=== PATIENT | female | born 1930 | race Caucasian/White ===

== ENCOUNTER 2017-08-06 16:49 | Inpatient (IN) | payer BC ==
[~2017-08-06] VITALS: Ht 167.6 cm; Wt 120.2 kg
--- NOTE | 2017-08-06 16:50 | NUR ---
[id number] FROM HOME: GENERALIZED BODY WEAKNESS, UNABLE TO AMBULATE, NAD NOTED, VSS, RESP EVEN AND UNLABORED, PT WAS PUT ON MONITOR, WAITING FOR MD HERNANDEZ.
[2017-08-06 18:24] LABS: BASOPHILS # (AUTO) 0.1 /CMM (0.0-0.2); BASOPHILS % (AUTO) 1.4 % (0.0-2.0); EOSINOPHILS # (AUTO) 0.1 /CMM (0.0-0.7); EOSINOPHILS % (AUTO) 1.6 % (0.0-6.0); HEMATOCRIT 36 % (33-45); HEMOGLOBIN 12.6 g/dL (11.5-14.8); LYMPHOCYTES # (AUTO) 0.7 /CMM (0.8-4.8); LYMPHOCYTES % (AUTO) 15.1 % (20.0-44.0); MEAN CORPUSCULAR HEMOGLOBIN 32 PG (26.0-33.0); MEAN CORPUSCULAR HGB CONC 35 g/dl (31.0-36.0); MEAN CORPUSCULAR VOLUME 92 fL (82-100); MONOCYTES # (AUTO) 0.6 /CMM (0.1-1.30); MONOCYTES % (AUTO) 12.1 % (2.0-12.0); NEUTROPHILS # (AUTO) 3.4 /CMM (1.8-8.9); NEUTROPHILS % (AUTO) 69.8 % (43.0-81.0); PLATELET COUNT (AUTO) 114 /CMM (150-450); RDW COEFFICIENT OF VARIATION 13.4 (11.5-15.0); RED BLOOD CELL COUNT(AUTO) 3.92 MIL/uL (4.0-5.2); WHITE BLOOD COUNT (AUTO) 4.9 K/uL (4.3-11.0)
[2017-08-06] MEDS ORDERED: IV NS 0.9% 500 ML BAG IV ONE (18:30)
[2017-08-06 18:36] LABS: CALCIUM, SERUM 8.6 mg/dL (8.5-10.1); CARBON DIOXIDE 21 mmol/L (21-32); CHLORIDE 109 mmol/L (98-107); CREATININE 1.3 mg/dL (0.6-1.3); GLUCOSE 93 mg/dL (74-106); POTASSIUM 4.1 mmol/L (3.5-5.1); SODIUM SERUM 140 mmol/L (136-145); UREA NITROGEN, BLOOD 19 mg/dL (7-18)
[2017-08-06 18:39] LABS: INR 0.92 (0.85-1.15)
[2017-08-06 18:42] LABS: ALANINE AMINOTRANSFERASE 18 U/L (12-78); ALBUMIN 2.9 g/dL (3.4-5.0); ALKALINE PHOSPHATASE 54 U/L (46-116); ASPARTATE AMINOTRANSFERASE 25 U/L (15-37); BILIRUBIN,DIRECT 0.1 mg/dL (0.0-0.2); BILIRUBIN,TOTAL 0.6 mg/dL (0.2-1.0); LIPASE 65 U/L (73-393); TOTAL PROTEIN, SERUM 6.5 g/dL (6.4-8.2)
[2017-08-06 18:43] LABS: TROPONIN I < 0.017 ng/mL (0.00-0.056)
--- NOTE | 2017-08-06 19:07 | NUR ---
PT TO CTSCAN
[2017-08-06] MEDS ORDERED: ALEN35TA5 PO (19:16)
[2017-08-06] MEDS ORDERED: CLON0.1T PO (19:16)
[2017-08-06] MEDS ORDERED: TRAM50TA2 PO (19:16)
[2017-08-06] MEDS ORDERED: FURO20TA4 PO (19:16)
[2017-08-06] MEDS ORDERED: POTA20TA83 PO (19:16)
[2017-08-06] MEDS ORDERED: LOSA100T3 PO (19:16)
[2017-08-06] MEDS ORDERED: CRAN450C PO (19:16)
[2017-08-06] MEDS ORDERED: BIMA2.5D5 EACHEYE (19:16)
[2017-08-06] MEDS ORDERED: PREG50CA PO (19:16)
[2017-08-06] MEDS ORDERED: TRAZ-144 PO (19:16)
[2017-08-06] MEDS ORDERED: ASPI-1169 PO (19:16)
[2017-08-06] MEDS ORDERED: POLY17PO4 PO (19:16)
[2017-08-06] MEDS ORDERED: SERT50TA PO (19:16)
[2017-08-06] MEDS ORDERED: BUPR-96 PO (19:16)
[2017-08-06] MEDS ORDERED: HYDR100T27 PO (19:16)
[2017-08-06] MEDS ORDERED: ACET-2605 PO (19:16)
[2017-08-06] MEDS ORDERED: LOVA40TA2 PO (19:16)
[2017-08-06] MEDS ORDERED: hydrALAZINE HCL IV 20 MG VIAL IV PRN (20:00)
[2017-08-06] MEDS ORDERED: TRAMADOL HCL 50 MG TABLET PO PRN (20:00)
[2017-08-06] MEDS ORDERED: POLYETHYLENE GLYCOL 3350 17 GM POWD.PACK PO PRN (20:00)
[2017-08-06] MEDS ORDERED: ENOXAPARIN SODIUM 40 MG/0.4 ML DISP.SYRIN SQ SCH (21:00)
[2017-08-06 21:30] VITALS: BP 162/86
--- NOTE | 2017-08-06 21:30 | NUR ---
RN OPENING NOTES RECEIVED PATIENT FROM ER IN STABLE CONDITION, ALERT AND ORIENTED X3. FAMILY PRESENT AT BEDSIDE. VS STABLE. RESPIRATIONS EVEN AND UNLABORED. NO SOB NOTED. PATIENT C/O WEAKNESS. IV ACCESS ON LEFT HAND 20 G PATENT AND INTACT, NO REDNESS OR INFILTRATION NOTED. TELE MONITOR IS IN PLACE, A PACING 70 BPM. BED IN LOW AND LOCKED POSITION, SIDE RAILS X2. CALL LIGHT WITHIN EASY REACH. WILL CONTINUE TO MONITOR AND ASSESS DURING THE SHIFT.
[2017-08-06] MEDS: PREGABALIN 25 MG CAPSULE PO SCH (22:08)
[2017-08-06] MEDS: TRAZODONE 50 MG TABLET PO SCH (22:09)
[2017-08-06] MEDS: LATANOPROST EYE DROP 0.005% 2.5 ML BOTTLE OP SCH (22:13)
[2017-08-06] MEDS: BLOOD SUGAR DIAGNOSTIC 1 EACH STRIP IN SCH (22:17)
[2017-08-07] VITALS: BP 143/73
[2017-08-07] MEDS ORDERED: BLOOD SUGAR DIAGNOSTIC 1 EACH STRIP IN SCH
[2017-08-07 04:00] VITALS: BP 139/72
[2017-08-07] MEDS: BLOOD SUGAR DIAGNOSTIC 1 EACH STRIP IN SCH ×4 (06:25→21:42)
--- NOTE | 2017-08-07 06:45 | NUR ---
RN CLOSING NOTES PATIENT IS SLEEPING IN BED, EASY TO AROUSE, ALERT AND ORIENTED X3. VS STABLE. RESPIRATIONS EVEN AND UNLABORED. NO SOB NOTED. PATIENT C/O WEAKNESS. IV ACCESS ON LEFT HAND 20 G PATENT AND INTACT, NO REDNESS OR INFILTRATION NOTED. TELE MONITOR IS IN PLACE, A PACING 70 BPM. ALL NEEDS ARE MET AND MEDICATIONS GIVEN PER MD ORDER. BED IN LOW AND LOCKED POSITION, SIDE RAILS X2. CALL LIGHT WITHIN EASY REACH. WILL ENDORSE TO RN DAY SHIFT FOR ALICE.
--- NOTE | 2017-08-07 07:00 | NUR ---
RN OPENING NOTES. PT RECEIVED A&0X3, ALERT AND RESTING IN BED, HEAD OF BED ELEVATED. PT TOLERATING ROOM AIR WITH IXQ650% AND NO S/S OR RESP DISTRESS. PT DENIES PAIN. PT WITH IVC AT L HAND G#20 INTACT AND SALINE FLUSH PATENT. PT NEURO INTACT, NIHSS SCALE OF 0 AND PASSED NURSING SWALLOW SCREEN. PT BRIEFED ON TODAY'S POC, CALL TRUONG USE AND PLANNED CONSULTS. PT EDUCATED REGARDING S/S OF STROKE, RISK FACTORS, MEDICATIONS, WHEN TO CALL EMERGENCY SERVICES. CONTACTED REGARDING [facility]MINISTRATION - WILL ADMIN WHEN AVAILABLE. PT SCTS ORDERED. PT BED IN LOWEST LOCKED POSITION WITH HANDRAILSX2 AND CALL TRUONG WITHIN REACH. PT WITHOUT CONCERN OR COMPLAINT, WILL MONITOR CLOSELY.
[2017-08-07 07:01] LABS: BASOPHILS % (AUTO) 0.3 % (0.0-2.0); EOSINOPHILS # (AUTO) 0.1 /CMM (0.0-0.7); EOSINOPHILS % (AUTO) 2.5 % (0.0-6.0); HEMATOCRIT 33 % (33-45); HEMOGLOBIN 11.2 g/dL (11.5-14.8); LYMPHOCYTES # (AUTO) 0.6 /CMM (0.8-4.8); LYMPHOCYTES % (AUTO) 13.2 % (20.0-44.0); MEAN CORPUSCULAR HEMOGLOBIN 32 PG (26.0-33.0); MEAN CORPUSCULAR HGB CONC 34 g/dl (31.0-36.0); MEAN CORPUSCULAR VOLUME 93 fL (82-100); MONOCYTES # (AUTO) 0.6 /CMM (0.1-1.30); MONOCYTES % (AUTO) 11.7 % (2.0-12.0); NEUTROPHILS # (AUTO) 3.5 /CMM (1.8-8.9); NEUTROPHILS % (AUTO) 72.3 % (43.0-81.0); PLATELET COUNT (AUTO) 112 /CMM (150-450); RDW COEFFICIENT OF VARIATION 13.8 (11.5-15.0); RED BLOOD CELL COUNT(AUTO) 3.52 MIL/uL (4.0-5.2); WHITE BLOOD COUNT (AUTO) 4.9 K/uL (4.3-11.0)
[2017-08-07 07:06] LABS: CALCIUM, SERUM 8.2 mg/dL (8.5-10.1); CARBON DIOXIDE 20 mmol/L (21-32); CHLORIDE 109 mmol/L (98-107); CREATININE 1.2 mg/dL (0.6-1.3); GLUCOSE 85 mg/dL (74-106); POTASSIUM 3.7 mmol/L (3.5-5.1); SODIUM SERUM 141 mmol/L (136-145); UREA NITROGEN, BLOOD 16 mg/dL (7-18)
[2017-08-07 07:10] LABS: INR 0.95 (0.87-1.13)
[2017-08-07 07:18] LABS: ALANINE AMINOTRANSFERASE 20 U/L (12-78); ALBUMIN 2.6 g/dL (3.4-5.0); ALKALINE PHOSPHATASE 43 U/L (46-116); ASPARTATE AMINOTRANSFERASE 16 U/L (15-37); B-TYPE NATRIURETIC PEPTIDE 1585 PG/ML (0-125); BILIRUBIN,TOTAL 0.5 mg/dL (0.2-1.0); TOTAL PROTEIN, SERUM 5.9 g/dL (6.4-8.2)
[2017-08-07 07:19] LABS: CHOLESTEROL 187 mg/dL (<200); HDL CHOLESTEROL 36 mg/dL (40-60); LDL 118 mg/dL (0-99); THYROID STIMULATING HORMONE 2.542 uIU/mL (0.358-3.74); TRIGLYCERIDES 153 mg/dL (30-150)
[2017-08-07 08:00] VITALS: BP 152/73
[2017-08-07] MEDS: BUPROPION XL 150 MG TAB.ER.24 PO SCH (09:00)
[2017-08-07] MEDS ORDERED: Medication Not On Formulary EA (Cranberry Fruit Concentrate (Cranberry) 450 MG) PO SCH (09:00)
[2017-08-07] MEDS: SERTRALINE HCL 50 MG TABLET PO SCH (09:00)
[2017-08-07] MEDS: PREGABALIN 25 MG CAPSULE PO SCH ×2 (09:39→21:42)
[2017-08-07] MEDS: ASPIRIN 81 MG TAB.CHEW PO SCH (09:40)
[2017-08-07] MEDS: FUROSEMIDE 20 MG TABLET PO SCH (09:44)
[2017-08-07] MEDS: LOSARTAN POTASSIUM 50 MG TABLET PO SCH (09:45)
[2017-08-07] MEDS: CLONIDINE HCL 0.1 MG TABLET PO SCH ×2 (09:45→17:00)
[2017-08-07] MEDS: POTASSIUM CHLORIDE 20 MEQ TAB.PRT.SR PO SCH ×2 (09:45→17:25)
[2017-08-07] MEDS: hydrALAZINE HCL 50 MG TABLET PO SCH (09:46)
--- NOTE | 2017-08-07 11:00 | NUR ---
QC LAB TECHNICIAN NOTES. PT REFUSING I&0 CATH AT THIS TIME. WILL NOTIFY RN WHEN READY TO VOID.
[2017-08-07] MEDS: ENOXAPARIN SODIUM 40 MG/0.4 ML DISP.SYRIN SQ SCH (11:24)
[2017-08-07 12:00] VITALS: BP 106/69
[2017-08-07 16:00] VITALS: BP 108/54
--- NOTE | 2017-08-07 18:16 | NUR ---
IMPLANT COORDINATOR CLOSING. PT REMAINS A&0X3, PT WITH SOME VERY BRIEF PERIODS OF CONFUSION WITH DETAILS DURING SHIFT BUT QUICKLY REORIENTS. PT TOLERATING ROOM AIR WITHOUT SOB AND SAO2 WNL, PT DENIES PAIN. PT WITH SCTS IN P-LACE AND HOB ELEVATED. PT NIHSS REMAINS 0 AND IS WITHOUT OBVIOUS S/S OF DISTRESS, DISCOMFORT OR STROKE. PT EDUCATED EXTENSIVELY THROUGHOUT SHIFT FROM INTERDISCIPLINARY TEAM AND VERBALIZING UNDERSTANDING. PT REFUSED I&0 CATH BUT WAS UNABLE TO PROVIDE UA DUE TO INCONTINENCE, PT AGREEING TO I&0 CATH NOW, WILL ENDORSED TO NIGHT NURSE TO CAPTURE. PT BED IN LOWEST LOCKED POSITION WITH HANDRAILSX2 AND CALL TRUONG WITHIN REACH. ALL DAY NURSE DUTIES ATTENDED TO AND PT WITHOUT CONCERN OR COMPLAINT AT THIS TIME. WILL ENDORSE AT BEDSIDE TO NIGHT NURSE. Addendum: 08/07/17 at 1832 by MARIAMA PISANO RN TELE: A PACING 70BPM.
--- NOTE | 2017-08-07 18:23 | NUR ---
Sports Clerk Consult was requested Dr. Shannon Dickinson regarding ro cva and to rule out a stroke . Pt is an 86 year old female who was admitted to [facility] for weakness. SW met with patient at her bedside. Patient was confused and irritable. Pt. is oriented x3. Pt was unsure of where she was but then reported that she is in the hospital with redirection. Pt stated, Where is everyone. Pts primary contact is her Jan ([phone]). Pt currently resides in her home [address], [place] [address].Pt denies any use of cigarettes, alcohol, or drugs. Patient denies any suicidal or homicidal ideation. Pt was unsure why she is unable to stand up. SW offered pt. referrals and resources however, patient declined. SW will follow up with pts in regards of additional support and resources needed. GIULIANO spoke with BENJAMIN Rust and notified him of patients confusion. BENJAMIN Rust and GIULIANO went to pts bedside and Barrera asked questions to assess pts orientation. When Barrera asked the pt she was able to recall the information. SW will speak with to formulate the discharge plan.
--- NOTE | 2017-08-07 19:34 | NUR ---
MAIL SUPERINTENDENT OPENING NOTE RECEIVED PATIENT IN BED RESTING COMFORTABLY, ALERT ORIENTED X3, ON ROOM AIR WITH O2 SAT OF 98%. RESPIRATIONS EVEN AND UNLABORED, NO SIGNS OF APPARENT DISTRESS OR DISCOMFORT NOTED, DENIES SOB AND PAIN AT THIS TIME. PATIENT ON TELE MONITOR. L HAND SL 20G, NO FLUIDS RUNNING AT THIS TIME. PATIENT KEPT CLEAN AND COMFORTABLE, SAFETY MEASURES IN PLACE, BED IN LOW LOCKED POSITION, SIDE RAILS UPX2, CALL LIGHT WITHIN EASY REACH. WILL CONTINUE TO MONITOR.
[2017-08-07 20:00] VITALS: BP_SYST 120; BP_DIAS 61; BP_DIAS 64
[2017-08-07] MEDS: ATORVASTATIN 10 MG TABLET PO SCH (21:42)
[2017-08-07] MEDS: TRAZODONE 50 MG TABLET PO SCH (21:42)
[2017-08-07] MEDS: LATANOPROST EYE DROP 0.005% 2.5 ML BOTTLE OP SCH (21:42)
[2017-08-08 01:30] LABS: APPEARANCE,URINE SL CLOUDY (CLEAR); BILIRUBIN,URINE NEGATIVE (NEGATIVE); BLOOD, URINE NEGATIVE Ery/uL (NEGATIVE); COLOR,URINE YELLOW (YELLOW); KETONES,URINE NEGATIVE (NEGATIVE); LEUKOCYTE ESTERASE ,URINE 2+ (NEGATIVE); NITRITE, URINE POSITIVE (NEGATIVE); PROTEIN,URINE NEGATIVE (NEGATIVE); UGLUCOSE NEGATIVE (NEGATIVE); UROBILINOGEN,URINE 0.2 EU/dL (0.2)
[2017-08-08 01:34] LABS: BACTERIA,URINE Many /HPF (None Seen); RBC,URINE 0-2 /HPF (0-2); SQUAMOUS EPITHELIAL CELL,UR Few /HPF (None Seen); WBC,URINE 51-80 /HPF (0-3)
--- NOTE | 2017-08-08 06:46 | NUR ---
MS RN CLOSING NOTE PATIENT IN BED RESTING COMFORTABLY, ASLEEP, EASILY AROUSED WITH VERBAL STIMULI, ORIENTED X3, ON ROOM AIR WITH TOLERATING WELL. RESPIRATIONS EVEN AND UNLABORED, NO SIGNS OF APPARENT DISTRESS OR DISCOMFORT NOTED, DENIES SOB AND PAIN AT THIS TIME. PATIENT ON MS. L HAND SL 20G, NO FLUIDS RUNNING AT THIS TIME, PATENT AND INTACT. PATIENT KEPT CLEAN AND COMFORTABLE, ALL NEEDS ATTENDED. SAFETY MEASURES IN PLACE, BED IN LOW LOCKED POSITION, SIDE RAILS UPX2, CALL LIGHT WITHIN EASY REACH. WILL ENDORSE TO AM NURSE FOR CONTINUITY OF CARE.
[2017-08-08 07:13] LABS: BASOPHILS % (AUTO) 0.4 % (0.0-2.0); EOSINOPHILS # (AUTO) 0.2 /CMM (0.0-0.7); EOSINOPHILS % (AUTO) 4.9 % (0.0-6.0); HEMATOCRIT 34 % (33-45); HEMOGLOBIN 11.5 g/dL (11.5-14.8); LYMPHOCYTES # (AUTO) 0.9 /CMM (0.8-4.8); LYMPHOCYTES % (AUTO) 23.6 % (20.0-44.0); MEAN CORPUSCULAR HEMOGLOBIN 32 PG (26.0-33.0); MEAN CORPUSCULAR HGB CONC 34 g/dl (31.0-36.0); MEAN CORPUSCULAR VOLUME 93 fL (82-100); MONOCYTES # (AUTO) 0.5 /CMM (0.1-1.30); MONOCYTES % (AUTO) 12.3 % (2.0-12.0); NEUTROPHILS # (AUTO) 2.3 /CMM (1.8-8.9); NEUTROPHILS % (AUTO) 58.8 % (43.0-81.0); PLATELET COUNT (AUTO) 130 /CMM (150-450); RED BLOOD CELL COUNT(AUTO) 3.62 MIL/uL (4.0-5.2)
[2017-08-08] MEDS: BLOOD SUGAR DIAGNOSTIC 1 EACH STRIP IN SCH ×4 (07:29→21:34)
--- NOTE | 2017-08-08 07:40 | NUR ---
RN OPENING NOTES RECEIVED PT. PT STABLE AND SLEEPING IN BED. NO S/S OF RESP DISTRESS OR SOB. PT DOES NOT APPEAR TO BE IN PAIN. IV ACCESS LOCATED ON LEFT HAND 20 G CURRENTLY SL. SAFETY MEASURES IN PLACE, CALL LIGHT WITHIN REACH. WILL CONTINUE TO MONITOR.
[2017-08-08 07:43] LABS: CALCIUM, SERUM 8.5 mg/dL (8.5-10.1); CARBON DIOXIDE 20 mmol/L (21-32); CHLORIDE 109 mmol/L (98-107); CREATININE 1.1 mg/dL (0.6-1.3); GLUCOSE 89 mg/dL (74-106); POTASSIUM 3.9 mmol/L (3.5-5.1); SODIUM SERUM 140 mmol/L (136-145); UREA NITROGEN, BLOOD 14 mg/dL (7-18)
[2017-08-08 08:00] VITALS: BP 162/80
[2017-08-08] MEDS: hydrALAZINE HCL 50 MG TABLET PO SCH (08:30)
[2017-08-08] MEDS: ASPIRIN 81 MG TAB.CHEW PO SCH (08:31)
[2017-08-08] MEDS: CLONIDINE HCL 0.1 MG TABLET PO SCH ×2 (08:31→16:41)
[2017-08-08] MEDS: FUROSEMIDE 20 MG TABLET PO SCH (08:31)
[2017-08-08] MEDS: LOSARTAN POTASSIUM 50 MG TABLET PO SCH (08:31)
[2017-08-08] MEDS: POTASSIUM CHLORIDE 20 MEQ TAB.PRT.SR PO SCH ×2 (08:31→16:40)
[2017-08-08] MEDS: ENOXAPARIN SODIUM 40 MG/0.4 ML DISP.SYRIN SQ SCH (08:37)
[2017-08-08] MEDS: BUPROPION XL 150 MG TAB.ER.24 PO SCH (08:38)
[2017-08-08] MEDS: SERTRALINE HCL 50 MG TABLET PO SCH (08:38)
[2017-08-08] MEDS: PREGABALIN 25 MG CAPSULE PO SCH ×2 (08:38→20:11)
[2017-08-08 16:00] VITALS: BP 116/65
--- NOTE | 2017-08-08 16:47 | NUR ---
RN NOTES ROCHELLE (SON) REQUESTING CONTACT WITH . [phone]. [phone]. REQUESTING INFO REGARDING REHAB SERVICES, INSURANCE, ETC.
--- NOTE | 2017-08-08 18:22 | NUR ---
RN CLOSING NOTES PT IN BED RESTING. NO S/S OF RESP DISTRESS OR SOB. NO C/O PAIN AT THIS TIME. PT EVAL PERFORMED TODAY. PT WAS ABLE TO AMBULATE APPROXIMATELY 25 FT. WILL NOTIFY MD. ALL PT NEEDS ANTICIPATED AND MET. SAFETY MEASURES IN PLACE, CALL LIGHT WITHIN REACH. WILL ENDORSE TO FREIGHT SORTER FOR ALICE.
--- NOTE | 2017-08-08 19:41 | NUR ---
MS RN OPENING NOTE RECEIVED PATIENT IN BED, RESTING COMFORTABLY, ALERT ORIENTED X 3, ABLE TO MAKE NEEDS KNOWN. ON ROOM AIR, TOLERATING WELL. RESPIRATIONS EVEN AND UNLABORED. DENIES SOB AND PAIN AT THIS TIME. MS STATUS, LEFT HAND IV 20G SL, FLASHED WITH NS, PATENT AND INTACT. PATIENT KEPT CLEAN AND COMFORTABLE. SAFETY MEASURES IN PLACE, BED IN LOW LOCKED POSITION, SIDE RAILS UP X2, CALL LIGHT WITHIN EASY REACH. WILL CONTINUE TO MONITOR.
[2017-08-08 20:00] VITALS: BP_SYST 121; BP_SYST 141; BP_DIAS 67; BP_DIAS 69
[2017-08-08] MEDS: CEFTRIAXONE 1 G in IV D5W 50 ML IV SCH (20:11)
[2017-08-08] MEDS: LATANOPROST EYE DROP 0.005% 2.5 ML BOTTLE OP SCH (21:34)
[2017-08-08] MEDS: TRAZODONE 50 MG TABLET PO SCH (21:34)
[2017-08-08] MEDS: ATORVASTATIN 10 MG TABLET PO SCH (21:34)
--- NOTE | 2017-08-08 22:00 | NUR ---
PATIENT BLOOD GLUCOSE 116. NO FURTHER ACTION AT THIS TIME.
--- NOTE | 2017-08-09 07:01 | NUR ---
MS RN CLOSING NOTE PATIENT IN BED RESTING COMFORTABLY, ASLEEP, EASILY AROUSED WITH VERBAL STIMULI, ORIENTED X3, ON ROOM AIR TOLERATING WELL. RESPIRATIONS EVEN AND UNLABORED, NO SIGNS OF APPARENT DISTRESS OR DISCOMFORT NOTED,. PATIENT ON MS. L FA SL 22G, NO FLUIDS RUNNING AT THIS TIME, PATENT AND INTACT. PATIENT KEPT CLEAN AND COMFORTABLE, ALL NEEDS ATTENDED. SAFETY MEASURES IN PLACE, BED IN LOW LOCKED POSITION, SIDE RAILS UPX2, CALL LIGHT WITHIN EASY REACH. WILL ENDORSE TO AM NURSE FOR CONTINUITY OF CARE.
--- NOTE | 2017-08-09 07:19 | NUR ---
RN OPENING NOTES RECEIVED PT. PT IS STABLE AND RESTING IN BED. A/OX3. NO S/S OF RESP DISTRESS OR SOB. NO C/O PAIN AT THIS TIME. PER HOSPITALIST ON 08/08/17 HIGH WBC IN URINE INDICATIVE OF UTI, LIKELY MANIFESTING PT'S MAIN ADMITTING COMPLAINTS. SAFETY MEASURES IN PLACE, CALL LIGHT WITHIN REACH, WILL CONTINUE TO MONITOR.
[2017-08-09] MEDS: PREGABALIN 25 MG CAPSULE PO SCH ×2 (08:13→20:42)
[2017-08-09] MEDS: POTASSIUM CHLORIDE 20 MEQ TAB.PRT.SR PO SCH ×2 (08:13→16:46)
[2017-08-09] MEDS: ASPIRIN 81 MG TAB.CHEW PO SCH (08:14)
[2017-08-09] MEDS: FUROSEMIDE 20 MG TABLET PO SCH (08:15)
[2017-08-09] MEDS: LOSARTAN POTASSIUM 50 MG TABLET PO SCH (08:16)
[2017-08-09] MEDS: ENOXAPARIN SODIUM 40 MG/0.4 ML DISP.SYRIN SQ SCH (08:22)
[2017-08-09] MEDS: hydrALAZINE HCL 50 MG TABLET PO SCH (08:23)
[2017-08-09] MEDS: BUPROPION XL 150 MG TAB.ER.24 PO SCH (08:23)
[2017-08-09] MEDS: SERTRALINE HCL 50 MG TABLET PO SCH (08:23)
[2017-08-09] MEDS: BLOOD SUGAR DIAGNOSTIC 1 EACH STRIP IN SCH ×4 (08:23→21:09)
[2017-08-09] MEDS: CLONIDINE HCL 0.1 MG TABLET PO SCH ×2 (08:23→16:47)
[2017-08-09 08:25] VITALS: BP 121/63
[2017-08-09 16:51] VITALS: BP 122/61
--- NOTE | 2017-08-09 17:41 | NUR ---
[employer] Sales Engineer called and left a message for pt.'s Jan ([phone]) in regards to discharge plan.
--- NOTE | 2017-08-09 18:19 | NUR ---
RN CLOSING NOTE PT IN BED RESTING. NO S/S OF RESP DISTRESS OR SOB. NO C/O PAIN AT THIS MOMENT. PT SCHEDULED TO BE D/C HOME WITH HOME HEALTH TOMORROW 08/10/17. CASE MANAGEMENT TO FINALIZE HH PLACEMENT. ALL PT NEEDS ANTICIPATED AND MET, SAFETY MEASURES IN PLACE, CALL LIGHT WITHIN REACH. WILL ENDORSE TO INFORMATICS SPEC FOR ALICE.
--- NOTE | 2017-08-09 19:00 | NUR ---
RN NOTES RECEIVE PT IN BED A/O X 3 NO S/S OF DISTRESS, STABLE, SAFETY MEASURES IN PLACE, CALL LIGHT WITHIN REACH, WILL CONTINUE TO MONITOR.
[2017-08-09 20:00] VITALS: BP 147/78
[2017-08-09] MEDS: CEFTRIAXONE 1 G in IV D5W 50 ML IV SCH (20:42)
[2017-08-09] MEDS: LATANOPROST EYE DROP 0.005% 2.5 ML BOTTLE OP SCH (21:10)
[2017-08-09] MEDS: TRAZODONE 50 MG TABLET PO SCH (21:10)
[2017-08-09] MEDS: ATORVASTATIN 10 MG TABLET PO SCH (21:10)
[2017-08-10] MEDS: BLOOD SUGAR DIAGNOSTIC 1 EACH STRIP IN SCH ×2 (05:31→12:52)
--- NOTE | 2017-08-10 06:13 | NUR ---
MS RN CLOSING NOTES PT ASLEEP IN BED AND EASILY AWAKEN, HEAD OF BED ELEVATED AT ALL TIMES FOR BETTER LUNG EXPANSION AND GOOD CIRCULATION. TOLERATING ROOM AIR 98%. AFEBRILE. NOT IN RESPIRATORY DISTRESS, STABLE, NURSING CARE RENDERED. NEEDS ATTENDED AND ANTICIPATED. GOOD SKIN CARE PROVIDED. KEPT CLEAN AND DRY AND COMFORTABLE.NO C/O OF PAIN. ON LOW BED TO ENSURE SAFETY, CALL LIGHT WITHIN REACH, WILL ENDORSE TO THE NEXT SHIFT CONTINUE PLAN OF CARE.
--- NOTE | 2017-08-10 07:20 | NUR ---
RN OPEN NOTES RECEIVED REPORT FROM CORROSION CONTROL ENGINEER NURSE. PATIENT IS IN BED. AWAKE, ALERT AND ORIENTED TO NAME, PLACE AND TIME. NO SIGNS AND SYMPTOMS OF DISTRESS. BED IN LOW POSITION, LOCKED AND TWO SIDE RAILS ARE UP. CALL IGHT WITHIN REACH FOR SAFETY. WILL CONTINUE TO ASSESS AND MONITOR PATIENT
[2017-08-10] MEDS: PREGABALIN 25 MG CAPSULE PO SCH (08:14)
[2017-08-10] MEDS: hydrALAZINE HCL 50 MG TABLET PO SCH (08:14)
[2017-08-10] MEDS: SERTRALINE HCL 50 MG TABLET PO SCH (08:15)
[2017-08-10] MEDS: POTASSIUM CHLORIDE 20 MEQ TAB.PRT.SR PO SCH (08:15)
[2017-08-10] MEDS: FUROSEMIDE 20 MG TABLET PO SCH (08:15)
[2017-08-10] MEDS: BUPROPION XL 150 MG TAB.ER.24 PO SCH (08:15)
[2017-08-10] MEDS: ASPIRIN 81 MG TAB.CHEW PO SCH (08:16)
[2017-08-10] MEDS: LOSARTAN POTASSIUM 50 MG TABLET PO SCH (08:16)
[2017-08-10 08:17] VITALS: BP 139/76
[2017-08-10] MEDS: CLONIDINE HCL 0.1 MG TABLET PO SCH (08:17)
[2017-08-10] MEDS: ENOXAPARIN SODIUM 40 MG/0.4 ML DISP.SYRIN SQ SCH (08:23)
[2017-08-10] MEDS ORDERED: CEPHALEXIN MONOHYDRATE 500 MG CAPSULE PO ONE ×2 (10:00→11:30)
--- NOTE | 2017-08-10 13:15 | NUR ---
SUPERVISOR LEAD REFINERY NOTES DISCHARGE ORDER RECEIVED AND CARRIED OUT. PATIENT IS LEAVING IN A STABLE CONDITION. NO SIGNS AND SYMPTOMS OF DISTRESS. DENIED PAIN. ALL DISCHARGE INFORMATION EXPLAINED TO PATIENT AND PATIENT VERBALIZED UNDERSTANDING. ALL PERSONAL BELONGING WITH PATIENT AT TIME OF DISCHARGE. PATIENT SIGNED BOTH DISCHARGE FORM AND BELONGING LIST FORM; BOTH PLACED IN THE CHART. ANTIBIOTIC EDUCATION GAVE TO PATIENT. PER SON, HE WILL NOT BE ABLE TO GET THE ANTIBIOTIC PRESCRIPTION FOR THE PATIENT AND PER FRANCIS CELL TUBER HAND, TO GIVE THE PATIENT ONE KEFLEX PILL TO TAKE AT HOME TONIGHT; GIVEN THE SON EXTRA TIME TO GET THE PRESCRIPTION. IV SITE REMOVED. ID BAND REMOVED. NO NEW CONCERNS UPON DISCHARGE. PATIENT PICKED UP BY AN AMBULANCE AND TWO wafer slicer AND TRANSFERRED HOME.
== END 2017-08-10 13:15 | disposition home or self-care (01) | DRG 689 ==
LOC: ER 16:51 → TELE 20:42 → MED 08-07 20:28
PROVIDERS: ADMIT Internal Medicine; ATTEND Internal Medicine
DX: N39.0 Urinary tract infection, site not specified (principal); E43 Unspecified severe protein-calorie malnutrition; B96.89 Other specified bacterial agents as the cause of diseases classified elsewhere; G62.9 Polyneuropathy, unspecified; R53.1 Weakness; Z68.41 Body mass index [BMI] 40.0-44.9, adult; E78.5 Hyperlipidemia, unspecified; Z86.73 Personal history of transient ischemic attack (TIA), and cerebral infarction without residual deficits; F41.9 Anxiety disorder, unspecified; M48.00 Spinal stenosis, site unspecified; I87.2 Venous insufficiency (chronic) (peripheral); F32.9 Major depressive disorder, single episode, unspecified; Z88.1 Allergy status to other antibiotic agents; Z88.8 Allergy status to other drugs, medicaments and biological substances; Z79.82 Long term (current) use of aspirin; Z79.899 Other long term (current) drug therapy; E66.01 Morbid (severe) obesity due to excess calories; Z95.0 Presence of cardiac pacemaker; I70.0 Atherosclerosis of aorta; G89.4 Chronic pain syndrome; I10 Essential (primary) hypertension
CPT/HCPCS: 36415; 70450-TC; 71045-TC; 80048-TC; 80053-TC; 80061-TC; 80076-TC; 80305; 81000-TC; 82962-TC; 83690-TC; 83880; 84443-TC; 84484-TC; 85025-TC; 85652-TC; 85730-TC; 87081-TC; 87086-TC; 87186-TC; 92611-TC; 93307-TC; 93880-TC; 93970-TC; 97112-TC; 97116-TC; 97530-TC; A4606; J0696; J1650; J7040; J7050; J7060; Z7610

== ENCOUNTER 2017-11-04 17:38 | Inpatient (IN) | payer BC ==
[~2017-11-04] VITALS: Ht 154.9 cm; Wt 106.1 kg
[~2017-11-04 17:38] MED LIST: ACET-2605 PO; ALEN35TA5 PO; ASPI-1169 PO; BIMA2.5D5 EACHEYE; BUPR-96 PO; CLON0.1T PO; CRAN450C PO; FURO20TA4 PO; HYDR100T27 PO; LOSA100T3 PO; LOVA40TA2 PO; POLY17PO4 PO; POTA20TA83 PO; PREG50CA PO; SERT50TA PO; TRAM50TA2 PO; TRAZ-182 PO
[2017-11-04] MEDS ORDERED: FEE PK DOSING 1 MIN EA MC ONE (17:40)
--- NOTE | 2017-11-04 17:51 | NUR ---
BIB CG DT BLE SWELLING- WITH OPEN WOUND ON LEFT LEG X 1 WEEK. PATIENT IS AWAKE AND ALERT, APPEARS IN NO DISTRESS. RESPIRATION EVEN AND UNLABORED. SKIN IS WARM TO TOUCH AND NON DIAPHORETIC. AFEBRILE. VSS
[2017-11-04] MEDS ORDERED: LEVOFLOXACIN 750 MG /D5W 150ML 150 ML IV ONE (18:30)
[2017-11-04] MEDS ORDERED: VANCOMYCIN 1 GM in IV D5W 250 ML IV ONE (18:30)
[2017-11-04 18:35] LABS: BASOPHILS % (AUTO) 0.8 % (0.0-2.0); EOSINOPHILS % (AUTO) 2.4 % (0.0-6.0); HEMATOCRIT 33 % (33-45); HEMOGLOBIN 11.4 g/dL (11.5-14.8); LYMPHOCYTES # (AUTO) 0.8 /CMM (0.8-4.8); MEAN CORPUSCULAR HGB CONC 35 g/dl (31.0-36.0); MEAN CORPUSCULAR VOLUME 91 fL (82-100); MONOCYTES # (AUTO) 0.3 /CMM (0.1-1.30); MONOCYTES % (AUTO) 7.7 % (2.0-12.0); NEUTROPHILS % (AUTO) 71.1 % (43.0-81.0); PLATELET COUNT (AUTO) 148 /CMM (150-450); RDW COEFFICIENT OF VARIATION 13.5 (11.5-15.0); RED BLOOD CELL COUNT(AUTO) 3.61 MIL/uL (4.0-5.2); WHITE BLOOD COUNT (AUTO) 4.2 K/uL (4.3-11.0)
--- NOTE | 2017-11-04 18:38 | NUR ---
DANCE ENTERTAINER AT BS
--- NOTE | 2017-11-04 18:45 | NUR ---
ON PHONE WITH DRAKE.
--- NOTE | 2017-11-04 18:46 | NUR ---
CALLED NURSING TREE SURGEON AND REQUESTED A MED SURG BED FOR THIS PT.
[2017-11-04 18:54] LABS: ALANINE AMINOTRANSFERASE 29 U/L (12-78); ALBUMIN 3.4 g/dL (3.4-5.0); ALKALINE PHOSPHATASE 52 U/L (46-116); ASPARTATE AMINOTRANSFERASE 15 U/L (15-37); BILIRUBIN,DIRECT 0.1 mg/dL (0.0-0.2); BILIRUBIN,TOTAL 0.5 mg/dL (0.2-1.0); CALCIUM, SERUM 8.8 mg/dL (8.5-10.1); CARBON DIOXIDE 27 mmol/L (21-32); CHLORIDE 109 mmol/L (98-107); CREATININE 1.5 mg/dL (0.6-1.3); GLUCOSE 125 mg/dL (74-106); POTASSIUM 4.3 mmol/L (3.5-5.1); SODIUM SERUM 142 mmol/L (136-145); TOTAL PROTEIN, SERUM 6.5 g/dL (6.4-8.2); UREA NITROGEN, BLOOD 25 mg/dL (7-18)
[2017-11-04 18:55] LABS: INR 0.95 (0.85-1.15)
[2017-11-04 18:58] LABS: TROPONIN I < 0.017 ng/mL (0.00-0.056)
[2017-11-04] MEDS ORDERED: Z GUARD REMEDY 2 OZ OINT TP PRN ×2 (19:00→20:30)
[2017-11-04] MEDS ORDERED: ACETAMINOPHEN 325 MG TABLET PO PRN ×2 (19:00→20:30)
[2017-11-04] MEDS ORDERED: TRAMADOL HCL 50 MG TABLET PO PRN ×2 (19:00→20:30)
[2017-11-04] MEDS ORDERED: FUROSEMIDE 40 MG/4 ML VIAL IV SCH ×2 (19:00→20:30)
[2017-11-04] MEDS ORDERED: MAG HYDROX/AL HYDROX/SIMETH 30 ML UDC PO PRN ×2 (19:00→20:30)
[2017-11-04] MEDS ORDERED: HYDROCODONE/APAP 5/325MG 1 EACH TABLET PO PRN ×2 (19:00→20:30)
[2017-11-04] MEDS ORDERED: POLYETHYLENE GLYCOL 3350 17 GM POWD.PACK PO PRN ×2 (19:00→20:30)
[2017-11-04] MEDS ORDERED: ONDANSETRON HCL/PF 4 MG/2 ML VIAL IVP PRN ×2 (19:00→20:30)
[2017-11-04] MEDS ORDERED: MAGNESIUM HYDROXIDE 30 ML UDC PO PRN ×2 (19:00→20:30)
[2017-11-04] MEDS ORDERED: ENOXAPARIN SODIUM 30 MG/0.3 ML DISP.SYRIN SQ SCH (19:00)
[2017-11-04] MEDS ORDERED: HYDROCODONE/APAP 10/325MG 1 EA TABLET PO PRN ×2 (19:00→20:30)
[2017-11-04] MEDS ORDERED: ZOLPIDEM TARTRATE 5 MG TABLET PO PRN ×2 (19:00→20:30)
--- NOTE | 2017-11-04 19:59 | NUR ---
PT IS ASSIGNED TO MED SURG RM#: [id number], PT IS DIAGNOSED WITH CELLULITIS, AND DR FERGUSON IS THE ACCEPTING MD.
[2017-11-04 20:00] VITALS: BP 158/81
--- NOTE | 2017-11-04 20:20 | NUR ---
PT IS ASSIGNED TO 328-2, PT IS DIAGNOSED WITH INTRACTABLE VERTIGO, AND DR WATERS IS THE ACCEPTING MD.
--- NOTE | 2017-11-04 20:23 | NUR ---
PATIENT TRANSPORTED TO TELE WITH VSS
[2017-11-04 21:10] VITALS: BP 158/81
--- NOTE | 2017-11-04 21:30 | NUR ---
RECEIVED PT FROM ER, A, OX2-3. BREATHING EVENLY. NO SOB. NAD. SKIN WARM AND DRY. NO C/O PAIN OR DISCOMFORT AT THIS TIME. VSS W/ SLIGHTLY ELEVATED BP TO BE MONITORED. PT ABLE TO PROVIDE MEDICAL HX AND INFO. PER PT SHE HAS AN ADVANCE DIRECTIVE AT HOME WITH HER SON(LEONILA), ROCHELLE. TO F/U. BODY CHECK AND DIAPER CHANGE DONE. CLEANED AND DRIED. REMAINED COMFORTABLE IN BED W/ SXX2. CALL LIGHT WITHIN REACH. WILL CONT TO MONITOR, AND WILL F/U W/ MD'S ORDERS.
[2017-11-04] MEDS ORDERED: ATORVASTATIN 10 MG TABLET PO SCH (22:00)
[2017-11-04] MEDS ORDERED: TRAZODONE 50 MG TABLET PO SCH ×2 (22:00)
[2017-11-04] MEDS: ATORVASTATIN 10 MG TABLET PO SCH (22:11)
[2017-11-04] MEDS: ENOXAPARIN SODIUM 30 MG/0.3 ML DISP.SYRIN SQ SCH (22:26)
--- NOTE | 2017-11-05 05:10 | NUR ---
TRAMADOL GIVEN ORDERED PER PT'S REQUEST FOR C/O BACK PAIN. WILL CONT TO MONITOR ,
--- NOTE | 2017-11-05 07:10 | NUR ---
PT IN BED SLEEPING . STABLE W/ NO ACUTE EVENT DURING THE NIGHT . NEEDS ATTENDED AND ASSISTED W/ ADLS. REPORT GIVEN TO ALL FOR ALICE .
--- NOTE | 2017-11-05 07:25 | NUR ---
MS/RN Patient received Patient received, sleeping soundly, appears comfortable, in no distress. Safety measures in place, side rials X3 in upright position, brakes locked, bed in lowest setting. Call light within reach, will continue to monitor and ensure safety.
[2017-11-05] MEDS: PANTOPRAZOLE 40 MG TABLET.DR PO SCH ×2 (07:30→11:02)
[2017-11-05] MEDS ORDERED: PANTOPRAZOLE 40 MG TABLET.DR PO SCH (07:30)
[2017-11-05 08:00] VITALS: BP 128/59
[2017-11-05 08:40] VITALS: BP 128/59
[2017-11-05] MEDS: DOCUSATE SODIUM 100 MG CAPSULE PO SCH ×2 (08:42→17:16)
[2017-11-05] MEDS: POTASSIUM CHLORIDE 20 MEQ TAB.PRT.SR PO SCH ×2 (08:42→17:16)
[2017-11-05] MEDS: CLONIDINE HCL 0.1 MG TABLET PO SCH ×2 (08:43→17:00)
[2017-11-05] MEDS: ASPIRIN 81 MG TAB.CHEW PO SCH (08:43)
[2017-11-05] MEDS: LOSARTAN POTASSIUM 50 MG TABLET PO SCH (08:45)
[2017-11-05] MEDS ORDERED: BUPROPION XL 150 MG TAB.ER.24 PO SCH ×2 (09:00)
[2017-11-05] MEDS ORDERED: SERTRALINE HCL 50 MG TABLET PO SCH ×2 (09:00)
[2017-11-05] MEDS ORDERED: LOSARTAN POTASSIUM 50 MG TABLET PO SCH (09:00)
[2017-11-05] MEDS ORDERED: DOCUSATE SODIUM 100 MG CAPSULE PO SCH (09:00)
[2017-11-05] MEDS ORDERED: POTASSIUM CHLORIDE 20 MEQ TAB.PRT.SR PO SCH (09:00)
[2017-11-05] MEDS ORDERED: PREGABALIN 25 MG CAPSULE PO SCH ×2 (09:00)
[2017-11-05] MEDS ORDERED: ASPIRIN 81 MG TAB.CHEW PO SCH (09:00)
[2017-11-05] MEDS ORDERED: CLONIDINE HCL 0.1 MG TABLET PO SCH (09:00)
[2017-11-05] MEDS ORDERED: hydrALAZINE HCL 50 MG TABLET PO SCH ×2 (09:00)
[2017-11-05 09:12] LABS: BASOPHILS % (AUTO) 0.7 % (0.0-2.0); EOSINOPHILS % (AUTO) 3.7 % (0.0-6.0); HEMATOCRIT 31 % (33-45); HEMOGLOBIN 10.6 g/dL (11.5-14.8); LYMPHOCYTES # (AUTO) 0.9 /CMM (0.8-4.8); LYMPHOCYTES % (AUTO) 22.8 % (20.0-44.0); MEAN CORPUSCULAR HGB CONC 34 g/dl (31.0-36.0); MEAN CORPUSCULAR VOLUME 92 fL (82-100); MONOCYTES # (AUTO) 0.4 /CMM (0.1-1.30); MONOCYTES % (AUTO) 8.6 % (2.0-12.0); NEUTROPHILS # (AUTO) 2.6 /CMM (1.8-8.9); NEUTROPHILS % (AUTO) 64.2 % (43.0-81.0); PLATELET COUNT (AUTO) 137 /CMM (150-450); RDW COEFFICIENT OF VARIATION 14.3 (11.5-15.0); RED BLOOD CELL COUNT(AUTO) 3.37 MIL/uL (4.0-5.2); WHITE BLOOD COUNT (AUTO) 4.1 K/uL (4.3-11.0)
[2017-11-05 09:28] LABS: CALCIUM, SERUM 8.3 mg/dL (8.5-10.1); CARBON DIOXIDE 22 mmol/L (21-32); CHLORIDE 111 mmol/L (98-107); CREATININE 1.4 mg/dL (0.6-1.3); GLUCOSE 98 mg/dL (74-106); PHOSPHORUS 3.5 mg/dL (2.5-4.9); POTASSIUM 3.7 mmol/L (3.5-5.1); SODIUM SERUM 144 mmol/L (136-145); UREA NITROGEN, BLOOD 21 mg/dL (7-18)
--- NOTE | 2017-11-05 10:00 | NUR ---
MS/RN Nausea / Vomiting Patient had one episode of vomiting, zofran administered.
--- NOTE | 2017-11-05 10:28 | NUR ---
WOUND CARE CONSULT: PT PRESENTS WITH FRAGILE AREAS OF SKIN WITH CRUSTING TO LEFT LATERAL LOWER LEG, PRESENT ON ADMISSION. PT ALSO NOTED TO HAVE RASH TO PERINEUM, BUTTOCKS AND LEFT BREAST FOLD, ABD FOLD REDNESS, PRESENT ON ADMISSION. PT IS INCONTINENT. RECOMMENDATIONS MADE FOR SKIN PROTECTION AND CARE. DISCUSSED WITH NURSING STAFF. RECOMMEND ISOFLEX LOW AIRLOSS BED. WILL SEE PRN. CURRENT DAVID SCORE IS 16. MD IN AGREEMENT WITH PLAN OF CARE. Addendum: 11/05/17 at 1030 by HATTIE EL WNDNU Amended: Links added.
[2017-11-05] MEDS: CLOTRIMAZOLE 1% 15 GM TUBE TP SCH ×2 (10:30→17:17)
[2017-11-05] MEDS ORDERED: HYDR-4076 PO (13:33)
[2017-11-05] MEDS ORDERED: TOPI25TA PO (13:33)
[2017-11-05 16:00] VITALS: BP 113/59
[2017-11-05 16:03] VITALS: BP 113/59
--- NOTE | 2017-11-05 16:54 | NUR ---
MS/platen press operator requesting update Family requesting update from Dr Dickinson, has some questions and concerns -Brett .
[2017-11-05] MEDS: VANCOMYCIN 0.75 GM in IV D5W 250 ML IV SCH (17:16)
[2017-11-05] MEDS ORDERED: NYST15PO4 TP (17:26)
[2017-11-05] MEDS: PREGABALIN 25 MG CAPSULE PO SCH (17:36)
[2017-11-05] MEDS: TOPIRAMATE 25 MG TABLET PO SCH (17:39)
[2017-11-05] MEDS ORDERED: BIMATOPROST 2.5 ML DROPS OP SCH (18:00)
--- NOTE | 2017-11-05 19:30 | NUR ---
RECEIVED PT IN BED SLEEPING. BREATHING EVENLY. NO SOB. NAD . NO S/S OF PAIN OR DISCOMFORT, CALL LIGHT WITHIN REACH, WILL CONT TO MONITOR ,
--- NOTE | 2017-11-05 19:35 | NUR ---
MS/RN End note All needs attended, will endorse to night warehouse manager.
[2017-11-05 20:00] VITALS: BP 135/64
[2017-11-05] MEDS: ATORVASTATIN 10 MG TABLET PO SCH (21:14)
[2017-11-05] MEDS: LATANOPROST EYE DROP 0.005% 2.5 ML BOTTLE EACHEYE SCH (21:15)
[2017-11-05] MEDS: ENOXAPARIN SODIUM 30 MG/0.3 ML DISP.SYRIN SQ SCH (21:15)
--- NOTE | 2017-11-06 07:06 | NUR ---
PT IN BED SLEEPING, AROUSES EASILY. BREATHING EVENLY. NO SOB. NO ACUTE DISTRESS DURING THE NIGHT , DRESSING REMAINED C/D/I. NO C/O PAIN OR DISCOMFORT . NEEDS ATTENDED . BED LOW LOCKED. CALL LIGHT WITHIN REACH. WILL CONT TO MONITOR AND WILL ENDORSE TO AM SHIFT FOR ALICE .
[2017-11-06 07:10] LABS: CALCIUM, SERUM 8.5 mg/dL (8.5-10.1); CARBON DIOXIDE 22 mmol/L (21-32); CHLORIDE 110 mmol/L (98-107); CREATININE 1.3 mg/dL (0.6-1.3); GLUCOSE 98 mg/dL (74-106); POTASSIUM 3.9 mmol/L (3.5-5.1); SODIUM SERUM 142 mmol/L (136-145); UREA NITROGEN, BLOOD 17 mg/dL (7-18)
[2017-11-06 07:25] LABS: BASOPHILS % (AUTO) 0.4 % (0.0-2.0); EOSINOPHILS % (AUTO) 2.2 % (0.0-6.0); HEMATOCRIT 33 % (33-45); HEMOGLOBIN 11.3 g/dL (11.5-14.8); LYMPHOCYTES # (AUTO) 0.8 /CMM (0.8-4.8); LYMPHOCYTES % (AUTO) 15.3 % (20.0-44.0); MEAN CORPUSCULAR HGB CONC 34 g/dl (31.0-36.0); MEAN CORPUSCULAR VOLUME 92 fL (82-100); MONOCYTES # (AUTO) 0.4 /CMM (0.1-1.30); MONOCYTES % (AUTO) 7.4 % (2.0-12.0); NEUTROPHILS # (AUTO) 4.1 /CMM (1.8-8.9); NEUTROPHILS % (AUTO) 74.7 % (43.0-81.0); PLATELET COUNT (AUTO) 143 /CMM (150-450); RDW COEFFICIENT OF VARIATION 14.1 (11.5-15.0); WHITE BLOOD COUNT (AUTO) 5.5 K/uL (4.3-11.0)
--- NOTE | 2017-11-06 07:40 | NUR ---
RN NOTES PT IN BED SLEEPING, AROUSES EASILY. RESPIRATIONS EVEN AND UNLABORED. NO SOB. IN NO APPARENT PAIN OR DISCOMFORT, DRESSING REMAINED C/D/I. IV ACCESS PATENT AND INTACT NO REDNESS OR INFILTRATION NOTED, BED LOW LOCKED, SAFETY MEASURES CALL LIGHT WITHIN REACH. WILL CONTINUE TO MONITOR
[2017-11-06 08:00] VITALS: BP 132/75
[2017-11-06] MEDS: TOPIRAMATE 25 MG TABLET PO SCH ×2 (09:23→17:10)
[2017-11-06] MEDS: ASPIRIN 81 MG TAB.CHEW PO SCH (09:23)
[2017-11-06] MEDS: DOCUSATE SODIUM 100 MG CAPSULE PO SCH ×2 (09:24→17:10)
[2017-11-06] MEDS: PREGABALIN 25 MG CAPSULE PO SCH ×2 (09:25→17:10)
[2017-11-06] MEDS: hydrALAZINE HCL 25 MG TABLET PO SCH ×2 (09:25→17:10)
[2017-11-06] MEDS: POTASSIUM CHLORIDE 20 MEQ TAB.PRT.SR PO SCH ×2 (09:25→17:10)
[2017-11-06] MEDS: CLOTRIMAZOLE 1% 15 GM TUBE TP SCH ×2 (09:33→17:13)
[2017-11-06] MEDS: PANTOPRAZOLE 40 MG TABLET.DR PO SCH (09:35)
[2017-11-06] MEDS: LOSARTAN POTASSIUM 50 MG TABLET PO SCH (09:57)
[2017-11-06] MEDS: CLONIDINE HCL 0.1 MG TABLET PO SCH ×2 (09:57→17:11)
[2017-11-06 16:00] VITALS: BP 156/73
--- NOTE | 2017-11-06 17:30 | NUR ---
RN NOTES SPECIMEN URINE SPECIMEN COLLECTED, CALLED LAB FOR HEEL COVER SOFTENER WILL FOLLOW UP WITH NEXT SHIFT FOR HEEL COVER SOFTENER
[2017-11-06] MEDS: VANCOMYCIN 0.75 GM in IV D5W 250 ML IV SCH (17:59)
[2017-11-06] MEDS: GLUCERNA SHAKE 237 ML CAN PO SCH (18:58)
--- NOTE | 2017-11-06 19:17 | NUR ---
RN NOTES PT IN BED SLEEPING, AROUSES EASILY. RESPIRATIONS EVEN AND UNLABORED. NO SOB. IN NO APPARENT PAIN OR DISCOMFORT, DRESSING REMAINED C/D/I. IV ACCESS PATENT AND INTACT NO REDNESS OR INFILTRATION NOTED, BED LOW LOCKED, SAFETY MEASURES CALL LIGHT WITHIN REACH. WILL CONTINUE TO MONITOR AND ENDORSE TO NEXT SHIFT FOR CONTINUITY OF CARE
[2017-11-06 19:45] LABS: APPEARANCE,URINE SL CLOUDY (CLEAR); BILIRUBIN,URINE NEGATIVE (NEGATIVE); BLOOD, URINE NEGATIVE Ery/uL (NEGATIVE); COLOR,URINE YELLOW (YELLOW); KETONES,URINE NEGATIVE (NEGATIVE); LEUKOCYTE ESTERASE ,URINE 3+ (NEGATIVE); NITRITE, URINE NEGATIVE (NEGATIVE); PH,URINE 6.5 (5.0-8.0); PROTEIN,URINE NEGATIVE (NEGATIVE); UGLUCOSE NEGATIVE (NEGATIVE); UROBILINOGEN,URINE 0.2 EU/dL (0.2)
--- NOTE | 2017-11-06 19:45 | NUR ---
MS RN NOTES RECEIVED SLEEPING,AROUSABLE TO VERBAL STIMULI,IV ABX INFUSING AT THIS TIME VIA LEFT AC VIA IV PUMP,SITE PATENT.STILL WITH SLIGHT REDNESS ON BOTH LOWER EXTREMITY,ELEVATED ON PILLOWS.CALL LIGHT IN REACH,NEEDS ANTICIPATED.
[2017-11-06 19:56] LABS: RBC,URINE 0-2 /HPF (0-2)
[2017-11-06 19:57] LABS: BACTERIA,URINE Few /HPF (None Seen); SQUAMOUS EPITHELIAL CELL,UR Few /HPF (None Seen); WBC,URINE 21-50 /HPF (0-3)
[2017-11-06 20:00] VITALS: BP 135/72
[2017-11-06 20:19] VITALS: BP 135/72
[2017-11-06] MEDS: ENOXAPARIN SODIUM 30 MG/0.3 ML DISP.SYRIN SQ SCH (21:05)
[2017-11-06] MEDS: ATORVASTATIN 10 MG TABLET PO SCH (22:28)
[2017-11-06] MEDS: LATANOPROST EYE DROP 0.005% 2.5 ML BOTTLE EACHEYE SCH (22:31)
--- NOTE | 2017-11-07 01:48 | NUR ---
MS RN NOTES C/O STOMACH UPSET,MAALOX 30ML PO GIVEN ORDERED.
--- NOTE | 2017-11-07 03:00 | NUR ---
MS RN NOTES SOUND ASLEEP THIS TIME,KEPT WARM AND COMFORTABLE.
[2017-11-07 06:23] LABS: BASOPHILS % (AUTO) 0.7 % (0.0-2.0); EOSINOPHILS % (AUTO) 2.6 % (0.0-6.0); HEMATOCRIT 32 % (33-45); HEMOGLOBIN 11.1 g/dL (11.5-14.8); LYMPHOCYTES # (AUTO) 0.8 /CMM (0.8-4.8); LYMPHOCYTES % (AUTO) 12.8 % (20.0-44.0); MEAN CORPUSCULAR HGB CONC 34 g/dl (31.0-36.0); MEAN CORPUSCULAR VOLUME 92 fL (82-100); MONOCYTES # (AUTO) 0.5 /CMM (0.1-1.30); MONOCYTES % (AUTO) 8.1 % (2.0-12.0); NEUTROPHILS # (AUTO) 4.5 /CMM (1.8-8.9); NEUTROPHILS % (AUTO) 75.8 % (43.0-81.0); PLATELET COUNT (AUTO) 130 /CMM (150-450); RDW COEFFICIENT OF VARIATION 13.4 (11.5-15.0); RED BLOOD CELL COUNT(AUTO) 3.52 MIL/uL (4.0-5.2); WHITE BLOOD COUNT (AUTO) 5.9 K/uL (4.3-11.0)
[2017-11-07 06:40] LABS: CALCIUM, SERUM 8.5 mg/dL (8.5-10.1); CARBON DIOXIDE 21 mmol/L (21-32); CHLORIDE 109 mmol/L (98-107); GLUCOSE 103 mg/dL (74-106); POTASSIUM 4.1 mmol/L (3.5-5.1); SODIUM SERUM 141 mmol/L (136-145); UREA NITROGEN, BLOOD 14 mg/dL (7-18)
--- NOTE | 2017-11-07 07:09 | NUR ---
MS RN NOTES SLEPT WELL AT [facility].PAIN MANAGEMENT EFFECTIVE.SALINE LOCK REMAINS PATENT.REPOSITION PER PROTOCOL,CALL LIGHT IN REACH,NEEDS ATTENDED.ENDORSED TO LILIA ALEXANDER FOR ALICE.
--- NOTE | 2017-11-07 07:10 | NUR ---
RN NOTES PT IS LAYING DOWN IN BED, SLEEPING. PT ON RA, RESPIRATIONS ARE EVEN AND UNLABORED. IV ON RAC INTACT AND SL. NO SIGNS OF DISTRESS NOTED. SAFETY MEASURES ARE IN PLACE, CALL LIGHT IS IN REACH. WILL CONTINUE TO MONITOR.
[2017-11-07 08:00] VITALS: BP 132/69
[2017-11-07] MEDS: PANTOPRAZOLE 40 MG TABLET.DR PO SCH (08:07)
[2017-11-07] MEDS: GLUCERNA SHAKE 237 ML CAN PO SCH ×2 (08:08→12:03)
[2017-11-07] MEDS: DOCUSATE SODIUM 100 MG CAPSULE PO SCH (08:08)
[2017-11-07] MEDS: PREGABALIN 25 MG CAPSULE PO SCH (08:08)
[2017-11-07] MEDS: ASPIRIN 81 MG TAB.CHEW PO SCH (08:08)
[2017-11-07] MEDS: TOPIRAMATE 25 MG TABLET PO SCH (08:08)
[2017-11-07] MEDS: CLOTRIMAZOLE 1% 15 GM TUBE TP SCH (08:09)
[2017-11-07] MEDS: LOSARTAN POTASSIUM 50 MG TABLET PO SCH (08:09)
[2017-11-07] MEDS: CLONIDINE HCL 0.1 MG TABLET PO SCH (08:09)
[2017-11-07 08:10] VITALS: BP 132/69
[2017-11-07] MEDS: hydrALAZINE HCL 25 MG TABLET PO SCH (08:10)
[2017-11-07] MEDS: POTASSIUM CHLORIDE 20 MEQ TAB.PRT.SR PO SCH (08:11)
[2017-11-07] MEDS ORDERED: SILVER SULFADIAZINE CREAM 25 GM TUBE TP SCH (09:00)
[2017-11-07] MEDS ORDERED: SULF1TAB48 PO (10:42)
[2017-11-07] MEDS ORDERED: FUROSEMIDE 20 MG TABLET PO SCH (11:00)
--- NOTE | 2017-11-07 12:58 | NUR ---
RN NOTES PT WAS DISCHARGED HOME IN STABLE CONDITION, ACCOMPANIED BY FAMILY. IV AND ID BAND WERE REMOVED. ALL BELONGINGS WERE RETURNED TO PT THAT WERE DOCUMENTED ON ADMISSION BELONGING SHEET. PICTURES WERE TAKEN FOR WOUND DOCUMENTATION AND WOUND TREATMENT DONE. PT WAS GIVEN PRESCRIPTION TO PT AND TOLD TO CONTINUE WITH ANTIBIOTIC FOR 5 DAYS, PT VERBALIZED UNDERSTANDING. PT TOLD TO FOLLOW UP WITH PCP WITHIN 1-2 WEEKS OF DISCHARGE. PT VERBALIZED SHE WOULD MAKE APPOINTMENT ON HER OWN.
== END 2017-11-07 13:00 | disposition home or self-care (01) | DRG 602 ==
LOC: ER 17:39 → MEDSG2 20:53
PROVIDERS: ADMIT Internal Medicine; ATTEND Internal Medicine
DX: L03.116 Cellulitis of left lower limb (principal); E43 Unspecified severe protein-calorie malnutrition; N17.0 Acute kidney failure with tubular necrosis; I50.33 Acute on chronic diastolic (congestive) heart failure; Z68.41 Body mass index [BMI] 40.0-44.9, adult; L97.929 Non-pressure chronic ulcer of unspecified part of left lower leg with unspecified severity; I11.0 Hypertensive heart disease with heart failure; I87.2 Venous insufficiency (chronic) (peripheral); I87.8 Other specified disorders of veins; M81.0 Age-related osteoporosis without current pathological fracture; Z96.659 Presence of unspecified artificial knee joint; Z95.0 Presence of cardiac pacemaker; Z79.899 Other long term (current) drug therapy; Z79.82 Long term (current) use of aspirin; K59.00 Constipation, unspecified; H40.9 Unspecified glaucoma; G89.4 Chronic pain syndrome; G62.9 Polyneuropathy, unspecified; F03.90 Unspecified dementia, unspecified severity, without behavioral disturbance, psychotic disturbance, mood disturbance, and anxiety; E78.5 Hyperlipidemia, unspecified; E66.01 Morbid (severe) obesity due to excess calories
CPT/HCPCS: 36415; 71045-TC; 80048-TC; 80076-TC; 81000-TC; 83605-TC; 83735-TC; 84100-TC; 84484-TC; 85025-TC; 85730-TC; 87040-TC; 87081-TC; 87086-TC; A4606; J1650; J1940; J1956; J2405; J3370; J7050; J7060; Z7610

== ENCOUNTER 2018-03-05 21:11 | Inpatient (IN) | payer BC ==
[~2018-03-05] VITALS: Ht 162.6 cm; Wt 106.1 kg
[~2018-03-05 21:11] MED LIST changes: -BUPR-96 PO; +HYDR-4076 PO; -HYDR100T27 PO; +NYST15PO4 TP; -SERT50TA PO; +SULF1TAB48 PO; +TOPI25TA PO; -TRAM50TA2 PO; -TRAZ-182 PO
--- NOTE | 2018-03-05 21:11 | NUR ---
BBSON FROM HOME C/C BILATERAL LOWER LEG SWELLING W/ LEFT LOWER EXTREMITY. PT IS HYPERTENSIVE BUT OTHERWISE VSS NO ACUTE DISTRESS NOTED AT THIS TIME. SKIN INTEGRITY IS COMPROMISED WITH LOWER EXTREMITES RED IN COLOR WITH WOUND ON LEFT CALF. PT IS ALERT AND ORIENTED X4 ABLE TO MAKE NEEDS KNOWN. WILL CONTINUE TO MONITOR FOR ANY CHANGES DURING THE SHIFT.
--- NOTE | 2018-03-05 21:12 | NUR ---
ER MD HWANG AT BEDSIDE
--- NOTE | 2018-03-05 23:44 | NUR ---
LAB AT BEDSIDE FOR BLOOD DRAW
[2018-03-05 23:47] LABS: BASOPHILS % (AUTO) 0.7 % (0.0-2.0); EOSINOPHILS % (AUTO) 4.3 % (0.0-6.0); HEMATOCRIT 35 % (33-45); HEMOGLOBIN 11.4 g/dL (11.5-14.8); LYMPHOCYTES # (AUTO) 0.9 /CMM (0.8-4.8); MEAN CORPUSCULAR HGB CONC 33 g/dl (31.0-36.0); MEAN CORPUSCULAR VOLUME 94 fL (82-100); MONOCYTES # (AUTO) 0.3 /CMM (0.1-1.30); MONOCYTES % (AUTO) 8.4 % (2.0-12.0); NEUTROPHILS # (AUTO) 2.6 /CMM (1.8-8.9); NEUTROPHILS % (AUTO) 63.6 % (43.0-81.0); PLATELET COUNT (AUTO) 129 /CMM (150-450); RDW COEFFICIENT OF VARIATION 14.7 (11.5-15.0); RED BLOOD CELL COUNT(AUTO) 3.69 MIL/uL (4.0-5.2)
[2018-03-05 23:59] LABS: CALCIUM, SERUM 8.8 mg/dL (8.5-10.1); CARBON DIOXIDE 22 mmol/L (21-32); CHLORIDE 106 mmol/L (98-107); CREATININE 1.5 mg/dL (0.6-1.3); GLUCOSE 116 mg/dL (74-106); POTASSIUM 4.2 mmol/L (3.5-5.1); SODIUM SERUM 140 mmol/L (136-145); UREA NITROGEN, BLOOD 26 mg/dL (7-18)
[2018-03-06 00:11] LABS: B-TYPE NATRIURETIC PEPTIDE 161 PG/ML (0-125)
--- NOTE | 2018-03-06 01:44 | NUR ---
REPORT GIVEN TO FITZ
[2018-03-06] MEDS ORDERED: ACETAMINOPHEN 325 MG TABLET PO PRN (02:00)
[2018-03-06] MEDS ORDERED: POLYETHYLENE GLYCOL 3350 17 GM POWD.PACK PO PRN (02:00)
[2018-03-06] MEDS ORDERED: MAG HYDROX/AL HYDROX/SIMETH 30 ML UDC PO PRN (02:00)
[2018-03-06] MEDS ORDERED: MAGNESIUM HYDROXIDE 30 ML UDC PO PRN (02:00)
[2018-03-06] MEDS ORDERED: ZOLPIDEM TARTRATE 5 MG TABLET PO PRN (02:00)
[2018-03-06] MEDS ORDERED: Z GUARD REMEDY 2 OZ OINT TP PRN (02:00)
[2018-03-06] MEDS ORDERED: ONDANSETRON HCL/PF 4 MG/2 ML VIAL IVP PRN (02:00)
[2018-03-06] MEDS ORDERED: MORPHINE SULFATE INJ 4 MG/ML DISP.SYRIN IV PRN (02:00)
[2018-03-06 02:15] VITALS: BP 154/82
--- NOTE | 2018-03-06 07:10 | NUR ---
BULK MATERIALS HANDLING PLANT OPERATOR OPENING RECEIVED PATIENT RESTING IN BED IN STABLE CONDITION, ON ROOM AIR. NO RESPIRATORY DISTRESS NOTED. ALERT AND ORIENTED X 3. ABLE TO MAKE NEEDS KNOWN. IV SITE ON LEFT AC INTACT SALINE LOCK. HEAD OF BED ELEVATED, BED IN LOW AND LOCKED POSITION, WILL CONTINUE TO MONITOR CLOSELY.
[2018-03-06 08:00] VITALS: BP 118/61
[2018-03-06] MEDS ORDERED: FUROSEMIDE 20 MG TABLET PO SCH (09:00)
[2018-03-06] MEDS: NYSTATIN TOP POWDER 15 GM BOTTLE TP SCH ×2 (10:07→16:37)
[2018-03-06] MEDS: PREGABALIN 25 MG CAPSULE PO SCH ×2 (10:08→16:25)
[2018-03-06] MEDS: TOPIRAMATE 25 MG TABLET PO SCH ×2 (10:08→16:25)
[2018-03-06] MEDS: CLONIDINE HCL 0.1 MG TABLET PO SCH ×2 (10:09→16:35)
[2018-03-06] MEDS: hydrALAZINE HCL 25 MG TABLET PO SCH ×2 (10:10→16:34)
[2018-03-06] MEDS: HYDROCODONE/APAP 5/325MG 1 EACH TABLET PO PRN (11:59)
[2018-03-06] MEDS ORDERED: FEE PK DOSING 1 MIN EA MC ONE (13:27)
[2018-03-06] MEDS ORDERED: VANCOMYCIN 1.25 GM in IV D5W 500 ML IV SCH (14:00)
[2018-03-06 16:00] VITALS: BP 114/57
--- NOTE | 2018-03-06 17:16 | NUR ---
COFFEE WEIGHER NOTE PUT "RESTRAINTS" CARE PLAN IN PATIENT'S PROCESS PLANS BY ACCIDENT. CARE PLAN STOPPED.
[2018-03-06] MEDS ORDERED: BIMATOPROST 2.5 ML DROPS OP SCH (18:00)
--- NOTE | 2018-03-06 18:53 | NUR ---
MED SURG NOTE PER PHARMACY, LUMIGAN EYEDROPS NOT AVAILABLE AND WILL BE CHANGED TO ANOTHER KIND OF EYEDROPS. THEREFORE, EYEDROPS NOT ADMINISTERED.
--- NOTE | 2018-03-06 19:30 | NUR ---
MS RN NOTES: RECEIVED PT ON BED AWAKE AND ALERT, VERBALLY RESPONSIVE. NO ACUTE DISTRESS NOTED. DENIES PAIN AND DISCOMFORT AT THIS TIME. ON ROOM AIR, SATURATING WELL. IV ON LEFT WRIST #22 INTACT AND PATENT, FLUSHING WELL. KEPT CLEAN, DRY AND COMFORTABLE. SAFETY AND FALL PRECAUTIONS OBSERVED AND MAINTAINED. CALL LIGHT PLACED WITHIN REACH.
[2018-03-06 19:39] VITALS: BP 118/61
[2018-03-06 20:00] VITALS: BP 116/52
[2018-03-06] MEDS: FUROSEMIDE 40 MG/4 ML VIAL IV SCH (21:12)
[2018-03-06] MEDS ORDERED: LATANOPROST EYE DROP 0.005% 2.5 ML BOTTLE OP SCH (22:00)
[2018-03-06] MEDS ORDERED: ATORVASTATIN 10 MG TABLET PO SCH (22:00)
[2018-03-06] MEDS ORDERED: LATANOPROST EYE DROP 0.005% 2.5 ML BOTTLE ONE (22:45)
[2018-03-07 01:28] LABS: APPEARANCE,URINE CLOUDY (CLEAR); BILIRUBIN,URINE NEGATIVE (NEGATIVE); BLOOD, URINE NEGATIVE Ery/uL (NEGATIVE); COLOR,URINE YELLOW (YELLOW); KETONES,URINE NEGATIVE (NEGATIVE); LEUKOCYTE ESTERASE ,URINE 3+ (NEGATIVE); NITRITE, URINE POSITIVE (NEGATIVE); PH,URINE 6.5 (5.0-8.0); PROTEIN,URINE NEGATIVE (NEGATIVE); UGLUCOSE NEGATIVE (NEGATIVE); UROBILINOGEN,URINE 0.2 EU/dL (0.2)
[2018-03-07 01:41] LABS: BACTERIA,URINE Many /HPF (None Seen); SQUAMOUS EPITHELIAL CELL,UR Few /HPF (None Seen); WBC,URINE 81-100 /HPF (0-3)
[2018-03-07 01:42] LABS: CREATININE, URINE 24.5 MG/DL (30.0-125.0); URINE TOTAL PROTEIN 10.8 mg/dL (0-11.9)
[2018-03-07 02:03] LABS: EOSINOPHIL,URINE Few
[2018-03-07 04:00] VITALS: BP 122/61
[2018-03-07 06:33] LABS: BASOPHILS % (AUTO) 0.7 % (0.0-2.0); EOSINOPHILS % (AUTO) 3.2 % (0.0-6.0); HEMATOCRIT 33 % (33-45); HEMOGLOBIN 10.9 g/dL (11.5-14.8); LYMPHOCYTES # (AUTO) 0.9 /CMM (0.8-4.8); LYMPHOCYTES % (AUTO) 20.3 % (20.0-44.0); MEAN CORPUSCULAR HGB CONC 33 g/dl (31.0-36.0); MEAN CORPUSCULAR VOLUME 95 fL (82-100); MONOCYTES # (AUTO) 0.4 /CMM (0.1-1.30); MONOCYTES % (AUTO) 8.6 % (2.0-12.0); NEUTROPHILS % (AUTO) 67.2 % (43.0-81.0); PLATELET COUNT (AUTO) 128 /CMM (150-450); RDW COEFFICIENT OF VARIATION 14.4 (11.5-15.0); WHITE BLOOD COUNT (AUTO) 4.5 K/uL (4.3-11.0)
[2018-03-07 06:47] LABS: ALANINE AMINOTRANSFERASE 16 U/L (12-78); ALBUMIN 2.8 g/dL (3.4-5.0); ALKALINE PHOSPHATASE 56 U/L (46-116); ASPARTATE AMINOTRANSFERASE 8 U/L (15-37); BILIRUBIN,TOTAL 0.5 mg/dL (0.2-1.0); CALCIUM, SERUM 8.5 mg/dL (8.5-10.1); CARBON DIOXIDE 26 mmol/L (21-32); CHLORIDE 107 mmol/L (98-107); CREATININE 1.3 mg/dL (0.6-1.3); GLUCOSE 92 mg/dL (74-106); PHOSPHORUS 4.3 mg/dL (2.5-4.9); POTASSIUM 3.7 mmol/L (3.5-5.1); SODIUM SERUM 141 mmol/L (136-145); TOTAL PROTEIN, SERUM 5.5 g/dL (6.4-8.2); UREA NITROGEN, BLOOD 25 mg/dL (7-18)
--- NOTE | 2018-03-07 06:48 | NUR ---
MS RN NOTES: NO CHANGES NOTED THROUGHOUT THE SHIFT. NO ACUTE DISTRESS NOTED. BREATHING EVEN AND UNLABORED WITH NORMAL RESPIRATIONS. NO COMPLAINTS OF PAIN OR DISCOMFORT. KEPT CLEAN, DRY AND COMFORTABLE. SAFETY AND FALL PRECAUTIONS OBSERVED AND MAINTAINED. CALL LIGHT WITHIN REACH. WILL ENDORSE TO DAY SHIFT FOR CONTINUITY OF CARE.
[2018-03-07 06:59] LABS: CHOLESTEROL 132 mg/dL (<200); CREATINE KINASE, TOTAL 100 U/L (26-192); HDL CHOLESTEROL 43 mg/dL (40-60); LDL 71 mg/dL (0-99); TRIGLYCERIDES 138 mg/dL (30-150)
--- NOTE | 2018-03-07 07:10 | NUR ---
RECEIVED PATIENT IN STABLE CONDITION RESTING IN BED, NO RESPIRATORY DISTRESS, ON ROOM AIR. HEAD OF BED ELEVATED, BED IN LOW AND LOCKED POSITION, CALL LIGHT WITHIN REACH, WILL CONTINUE TO MONITOR.
[2018-03-07] MEDS: CLONIDINE HCL 0.1 MG TABLET PO SCH (09:31)
[2018-03-07] MEDS: hydrALAZINE HCL 25 MG TABLET PO SCH (09:31)
[2018-03-07] MEDS: PREGABALIN 25 MG CAPSULE PO SCH (09:32)
[2018-03-07] MEDS: NYSTATIN TOP POWDER 15 GM BOTTLE TP SCH (09:32)
[2018-03-07] MEDS: FUROSEMIDE 40 MG/4 ML VIAL IV SCH (09:32)
[2018-03-07] MEDS: TOPIRAMATE 25 MG TABLET PO SCH (09:32)
[2018-03-07] MEDS: HYDROCODONE/APAP 5/325MG 1 EACH TABLET PO PRN (11:14)
[2018-03-07 12:00] VITALS: BP 96/43
--- NOTE | 2018-03-07 16:30 | NUR ---
JOSS HOUSE KEEPER NOTE PATIENT REQUESTING TO GO HOME, SON AT BEDSIDE. EXPLAINED TO PATIENT THAT IF SHE LEAVES, IT WOULD BE AGAINST MEDICAL ADVICE. EXPLAINED RISKS OF IT. PATIENT STATES "ALL I AM DOING HERE IS LAYING IN BED. I DON'T WANT TO STAY HERE. I WANT TO GO HOME NOW." NOTIFIED DR. SAALS WHO SAID THAT IF PATIENT LEAVES, IT WILL BE AMA. EXPLAINED TO PATIENT AND SON THE MEANING, PATIENT STATED UNDERSTANDING BUT STILL WANTS TO LEAVE. BELONGINGS TAKEN, PATIENT REFUSED HAVING PICTURES TAKEN OF SKIN ISSUES.. REMOVED IV SITE FROM LEFT WRIST. PATIENT LEFT THE FACILITY IN STABLE CONDITION ACCOMPANIED BY SON IN HER MOTORIZED WHEELCHAIR.
[2018-03-07] MEDS ORDERED: NYSTATIN TOP POWDER 15 GM BOTTLE TP SCH (21:00)
[2018-03-08 12:09] LABS: PTH, INTACT 42 pg/mL (15-65)
[2018-03-10 12:10] LABS: *SPE A/G RATIO 1.4 (0.7-1.7); *SPE ALPHA-1-GLOBULIN 0.2 g/dL (0.0-0.4); *SPE ALPHA-2-GLOBULIN 0.7 g/dL (0.4-1.0); *SPE BETA GLOBULIN 0.9 g/dL (0.7-1.3); *SPE GLOBULIN, TOTAL 2.1 g/dL (2.2-3.9); *SPE M-SPIKE Not Observed g/dL (Not Observed); *SPEGAMMA GLOBULIN 0.4 g/dL (0.4-1.8)
== END 2018-03-07 16:00 | disposition left against medical advice (07) | DRG 602 ==
LOC: ER 21:12 → MEDSG1 03-06 01:43
PROVIDERS: ADMIT Internal Medicine
DX: L03.115 Cellulitis of right lower limb (principal); N17.0 Acute kidney failure with tubular necrosis; D61.818 Other pancytopenia; I87.8 Other specified disorders of veins; L03.116 Cellulitis of left lower limb; E78.5 Hyperlipidemia, unspecified; I25.10 Atherosclerotic heart disease of native coronary artery without angina pectoris; I11.0 Hypertensive heart disease with heart failure; I50.9 Heart failure, unspecified; L30.4 Erythema intertrigo; I12.9 Hypertensive chronic kidney disease with stage 1 through stage 4 chronic kidney disease, or unspecified chronic kidney disease; N18.9 Chronic kidney disease, unspecified; M48.00 Spinal stenosis, site unspecified; I87.2 Venous insufficiency (chronic) (peripheral); Z95.0 Presence of cardiac pacemaker; Z96.653 Presence of artificial knee joint, bilateral; M81.0 Age-related osteoporosis without current pathological fracture; M19.90 Unspecified osteoarthritis, unspecified site; Z88.1 Allergy status to other antibiotic agents; Z79.82 Long term (current) use of aspirin; Z79.899 Other long term (current) drug therapy; G62.9 Polyneuropathy, unspecified; L30.9 Dermatitis, unspecified; D46.9 Myelodysplastic syndrome, unspecified
CPT/HCPCS: 36415; 71045-TC; 73501; 80048-TC; 80053-TC; 80061-TC; 81000-TC; 82550-TC; 82570-TC; 83735-TC; 83880; 83970; 84100-TC; 84155; 84155-TC; 84165; 84300-TC; 85025-TC; 87081-TC; 87086-TC; 87186-TC; A4606; J1940; J3370; J7060; Z7610

== ENCOUNTER 2018-05-23 08:54 | Inpatient (IN) | payer BC ==
[~2018-05-23] VITALS: Ht 162.6 cm; Wt 117.5 kg
--- NOTE | 2018-05-23 09:15 | NUR ---
pt BIBA RA 71 From Home- Fell off the electric wheelchair been on floor 6am complain of groin pain., pt is aaox3, not in respiratory distress, kept rested and comfortable.
--- NOTE | 2018-05-23 09:20 | NUR ---
labs drawned and sent to lab. awaiting result.
[2018-05-23 09:24] LABS: BASOPHILS % (AUTO) 0.6 % (0.0-2.0); EOSINOPHILS % (AUTO) 2.8 % (0.0-6.0); HEMATOCRIT 37 % (33-45); HEMOGLOBIN 12.2 g/dL (11.5-14.8); LYMPHOCYTES # (AUTO) 0.8 /CMM (0.8-4.8); LYMPHOCYTES % (AUTO) 12.8 % (20.0-44.0); MEAN CORPUSCULAR HGB CONC 33 g/dl (31.0-36.0); MEAN CORPUSCULAR VOLUME 96 fL (82-100); MONOCYTES # (AUTO) 0.6 /CMM (0.1-1.30); MONOCYTES % (AUTO) 9.8 % (2.0-12.0); NEUTROPHILS # (AUTO) 4.4 /CMM (1.8-8.9); PLATELET COUNT (AUTO) 126 /CMM (150-450); RED BLOOD CELL COUNT(AUTO) 3.83 MIL/uL (4.0-5.2); WHITE BLOOD COUNT (AUTO) 5.9 K/uL (4.3-11.0)
[2018-05-23] MEDS ORDERED: ACETAMINOPHEN ES 500 MG TABLET ONE (09:29)
[2018-05-23] MEDS ORDERED: ACETAMINOPHEN ES 500 MG TABLET PO ONE (09:30)
[2018-05-23 09:34] LABS: CALCIUM, SERUM 9.2 mg/dL (8.5-10.1); CARBON DIOXIDE 28 mmol/L (21-32); CHLORIDE 104 mmol/L (98-107); CREATININE 1.5 mg/dL (0.6-1.3); GLUCOSE 110 mg/dL (74-106); SODIUM SERUM 142 mmol/L (136-145); UREA NITROGEN, BLOOD 28 mg/dL (7-18)
[2018-05-23] MEDS ORDERED: AZITHROMYCIN 500 MG in IV D5W 250 ML IV ONE (10:30)
[2018-05-23] MEDS ORDERED: CEFTRIAXONE 1GM BAG (ER ONLY) 50 ML IV ONE ×2 (10:30→10:36)
--- NOTE | 2018-05-23 10:37 | NUR ---
PANEL ON-CALL PAGED
[2018-05-23] MEDS ORDERED: CYCL5TAB PO (11:03)
[2018-05-23] MEDS ORDERED: ACET1TAB12 PO (11:03)
--- NOTE | 2018-05-23 12:47 | NUR ---
REPORT GIVEN TO BENJAMIN AKBAR FOR ALICE.
[2018-05-23] MEDS ORDERED: Z GUARD REMEDY 2 OZ OINT TP PRN (13:00)
[2018-05-23] MEDS ORDERED: MAGNESIUM HYDROXIDE 30 ML UDC PO PRN (13:00)
[2018-05-23] MEDS ORDERED: ZOLPIDEM TARTRATE 5 MG TABLET PO PRN (13:00)
[2018-05-23] MEDS ORDERED: ACETAMINOPHEN 325 MG TABLET PO PRN (13:00)
[2018-05-23] MEDS ORDERED: MAG HYDROX/AL HYDROX/SIMETH 30 ML UDC PO PRN (13:00)
[2018-05-23] MEDS ORDERED: HYDROCODONE/APAP 5/325MG 1 EACH TABLET PO PRN (13:00)
[2018-05-23] MEDS ORDERED: ONDANSETRON HCL/PF 4 MG/2 ML VIAL IVP PRN (13:00)
[2018-05-23 13:30] VITALS: BP 143/78
[2018-05-23] MEDS ORDERED: ACETAMINOPHEN W/ CODEINE#3 1 EA TABLET PO PRN (13:30)
[2018-05-23] MEDS ORDERED: POLYETHYLENE GLYCOL 3350 17 GM POWD.PACK PO PRN (13:30)
--- NOTE | 2018-05-23 13:30 | NUR ---
RECEIVED PATIENT FROM ER VIA GURNEY. PATIENT A/OX3-4, ABLE TO MAKE NEEDS KNOWN. DIAGNOSIS OF PNA. NO ACUTE DISTRESS, NO SOB. DENIED PAIN OR DISCOMFORT. IV ACCESS IN TACT AND PATENT. SKIN ASSESSMENT DONE, PHOTOS TAKEN. BELONGINGS CHECKED. PATIENT HAS BILATERAL HEARING AIDS IN PLACE. KEPT PATIENT SAFE AND COMFORTABLE. BED IN LOW/LOCKED POSIITON, SIDERAILS UPX2, WILL CONTINUE OT MONIOTR ACCORDINGLY.
[2018-05-23] MEDS: IV NS 0.9% 1,000 ML IV SCH (14:46)
--- NOTE | 2018-05-23 16:00 | NUR ---
RN NOTES: ADVANCE DIRECTIVES CALLED ROCHELLE (RICH) REGARDING ADVANCE DIRECTIVES. SON WILL BRING IT TO THE [facility]OSPITAL [facility].
[2018-05-23] MEDS ORDERED: CYCLOBENZAPRINE 10 MG TABLET PO PRN (17:00)
[2018-05-23] MEDS: TOPIRAMATE 25 MG TABLET PO SCH (17:32)
[2018-05-23] MEDS: POTASSIUM CHLORIDE 20 MEQ TAB.PRT.SR PO SCH (17:33)
[2018-05-23] MEDS: PREGABALIN 25 MG CAPSULE PO SCH (17:33)
[2018-05-23] MEDS: hydrALAZINE HCL 25 MG TABLET PO SCH (17:34)
[2018-05-23] MEDS: CLONIDINE HCL 0.1 MG TABLET PO SCH (17:34)
[2018-05-23] MEDS: NYSTATIN TOP POWDER 15 GM BOTTLE TP SCH (17:35)
[2018-05-23] MEDS: Z GUARD REMEDY 2 OZ OINT TP SCH (17:35)
[2018-05-23] MEDS: CLOTRIMAZOLE 1% 15 GM TUBE TP SCH (17:36)
--- NOTE | 2018-05-23 19:00 | NUR ---
RN CLOSING NOTES PATIENT IN STABLE CONDITION. ALL DUE MEDICATIONS ADMINISTERED ORDERED. ALL NEEDS ATTENDED AND PROVIDED. KEPT PATIENT SAFE AND COMFORTABLE. BED IN LOW/LOCKED POSITION, SIDERAILS UPX2, SEMFOWLERS, CALL LIGHT IN REACH. ENDORSED TO NIGHT RN FOR ALICE
--- NOTE | 2018-05-23 19:30 | NUR ---
TELERN AWAKE, COUGHING ,UNABLE TO BRING UP PHLEGM. WILL REQUIRE BRETHING TREATMENTS AND COUGH SYRUP. HOB ON 40 DEGRESS, 02 2L VIA NC MAINTAINED. POSITIONED FOR COMFORT. V/S MONITORED. KEPT COMFORTABLE. TO CONTINUE.
[2018-05-23 20:00] VITALS: BP 119/62
--- NOTE | 2018-05-23 20:30 | NUR ---
TELERN SPOKE TO SON VIA PHONE, WANTED TO SPEAK TO MD, WILL SEE PATIENT IN AM. UPDATED PATIENTS CONDITION.
[2018-05-23] MEDS ORDERED: LATANOPROST EYE DROP 0.005% 2.5 ML BOTTLE OP SCH (22:00)
[2018-05-23] MEDS ORDERED: ATORVASTATIN 10 MG TABLET PO SCH (22:00)
[2018-05-23] MEDS ORDERED: GUAIFENESIN/D-METHORPHAN HB 5 ML UDC PO PRN (22:00)
--- NOTE | 2018-05-23 22:00 | NUR ---
TELERN HS CARE DONE, DUE MEDS ADMINISTERED, ORDERS OBTAINED FROM DR. MIGUEL FOR BREATHING TREATMENT AND COUGH SYRUP. PATIENT FULLY AWAKE, UNDERSTANDS PLAN OF CARE AND MEDICATION REGIMEN. ALL NEEDS MADE, [id number] AND KEPT COMFORTABLE.
[2018-05-23] MEDS: ALBUTEROL FS 2.5 MG/3 ML VIAL.NEB NEB SCH (23:44)
[2018-05-24] VITALS: BP 148/70
--- NOTE | 2018-05-24 00:30 | NUR ---
TELERN REMAINS SR WITH BBB ON THE MONITOR, SLEEPING OF THIS TIME. CLOSELY WATCHED.
[2018-05-24] MEDS: IV NS 0.9% 1,000 ML IV SCH (03:55)
[2018-05-24 04:00] VITALS: BP 135/83
--- NOTE | 2018-05-24 04:29 | NUR ---
TELERN AWAKENED, DISORIENTED. REALITY ORIENTATION, GOOD LISTENER, COOPERATIVE. EAGER TO SEE HER SON TODAY.
[2018-05-24] MEDS: ALBUTEROL FS 2.5 MG/3 ML VIAL.NEB NEB SCH ×5 (04:48→19:30)
[2018-05-24] MEDS: Z GUARD REMEDY 2 OZ OINT TP SCH ×2 (05:00→16:42)
--- NOTE | 2018-05-24 06:20 | NUR ---
TELERN HEARD PATIENT SCREAMING AFTER LABS DRAWN. UNDRESSED HERSELF AND COMBATIVE. UNCOOPERATIVE, TRYING TO GET OOB. PULLED IV HL OUT. TELE MONITOR PULLED OUT, UNMANAGEABLE . HFR. HAVE INDUSTRIAL MECHANIC STAYED WITH PATIENT FOR AWHILE.
[2018-05-24 06:23] LABS: BASOPHILS % (AUTO) 0.7 % (0.0-2.0); EOSINOPHILS % (AUTO) 4.3 % (0.0-6.0); HEMATOCRIT 32 % (33-45); HEMOGLOBIN 10.6 g/dL (11.5-14.8); LYMPHOCYTES # (AUTO) 0.7 /CMM (0.8-4.8); LYMPHOCYTES % (AUTO) 19.5 % (20.0-44.0); MEAN CORPUSCULAR HGB CONC 33 g/dl (31.0-36.0); MEAN CORPUSCULAR VOLUME 96 fL (82-100); MONOCYTES # (AUTO) 0.5 /CMM (0.1-1.30); MONOCYTES % (AUTO) 12.1 % (2.0-12.0); NEUTROPHILS # (AUTO) 2.4 /CMM (1.8-8.9); NEUTROPHILS % (AUTO) 63.4 % (43.0-81.0); PLATELET COUNT (AUTO) 104 /CMM (150-450); RED BLOOD CELL COUNT(AUTO) 3.29 MIL/uL (4.0-5.2); WHITE BLOOD COUNT (AUTO) 3.8 K/uL (4.3-11.0)
[2018-05-24 06:27] LABS: CALCIUM, SERUM 8.2 mg/dL (8.5-10.1); CARBON DIOXIDE 28 mmol/L (21-32); CHLORIDE 108 mmol/L (98-107); CREATININE 1.3 mg/dL (0.6-1.3); GLUCOSE 95 mg/dL (74-106); MAGNESIUM 2.5 mg/dL (1.8-2.4); PHOSPHORUS 3.7 mg/dL (2.5-4.9); POTASSIUM 4.1 mmol/L (3.5-5.1); SODIUM SERUM 144 mmol/L (136-145); UREA NITROGEN, BLOOD 22 mg/dL (7-18)
[2018-05-24] MEDS: NYSTATIN TOP POWDER 15 GM BOTTLE TP SCH ×2 (06:28→16:42)
[2018-05-24] MEDS: CLOTRIMAZOLE 1% 15 GM TUBE TP SCH ×2 (06:29→16:42)
[2018-05-24 06:30] LABS: CHOLESTEROL 128 mg/dL (<200); HDL CHOLESTEROL 37 mg/dL (40-60); LDL 72 mg/dL (0-99); TRIGLYCERIDES 108 mg/dL (30-150)
--- NOTE | 2018-05-24 06:35 | NUR ---
SYBIL MOVED PATIENT VIA BED TO ROOM 313-1. STILL COMBATIVE, HITTING STAFF. PLACED CALL TO SON FEW MINUTES AGO, INFORMED PATIENT VERY CONFUSED AND WANTED TO SEE HIM, MESSAGE LEFT.
--- NOTE | 2018-05-24 06:40 | NUR ---
TELERN FOUND PATIENT WITH SKIN TEAR ON LEFT FOREARM MEASURING 5CMX1.2CM. CLEANSE SITE , TEGADERM AND SECURELY WRAPPED WITH KERLEX BY RN. PICTURED. STARTING TO CALM DOWN AFTER FEW MINUTES. CLOSER OBSERVATION.
--- NOTE | 2018-05-24 07:00 | NUR ---
TELERN ENDORSED TO INCOMING RN FOR FOLLOW UP WITH WOUND NURSE. CALM AT THE MOMENT, SITTER AT BEDSIDE.
--- NOTE | 2018-05-24 07:30 | NUR ---
SIZE PAINTER NOTES PT IN BED, AWAKE, ALERT AND VERBALLY RESPONSIVE, NO COMPLAINT OF PAIN, RESPIRATIONS NORMAL, CALL LIGHT WITHIN REACH, DRESSING DRY AND INTACT AT LEFT FOREARM, CALM AT THIS TIME, KEPT WARM AND COMFORTABLE.
--- NOTE | 2018-05-24 08:30 | NUR ---
RN MS NOTES PT TRYING TO REMOVE DRESSING FROM LEFT FOREARM SKIN TEAR EVEN WITH REPEATED INSTRUCTIONS AND EXPLANATIONS ON WHY SHE NEEDS IT, PT STATES THAT SHE DOES NOT WANT IT, PT CALMED DOWN AFTER A FEW MINUTES, MONITORED PT CLOSELY.
[2018-05-24] MEDS: POTASSIUM CHLORIDE 20 MEQ TAB.PRT.SR PO SCH ×2 (09:00→16:39)
[2018-05-24] MEDS ORDERED: FUROSEMIDE 40 MG TABLET PO SCH (09:00)
[2018-05-24] MEDS ORDERED: ASPIRIN 81 MG TAB.CHEW PO SCH (09:00)
[2018-05-24] MEDS: CLONIDINE HCL 0.1 MG TABLET PO SCH ×2 (09:00→16:38)
[2018-05-24] MEDS: PREGABALIN 25 MG CAPSULE PO SCH ×2 (09:00→16:39)
[2018-05-24] MEDS: CEFTRIAXONE 1 G in IV D5W 50 ML IV SCH ×2 (09:00→14:40)
[2018-05-24] MEDS: hydrALAZINE HCL 25 MG TABLET PO SCH ×2 (09:00→16:39)
[2018-05-24] MEDS ORDERED: LOSARTAN POTASSIUM 50 MG TABLET PO SCH (09:00)
[2018-05-24] MEDS: TOPIRAMATE 25 MG TABLET PO SCH ×2 (09:00→16:39)
--- NOTE | 2018-05-24 09:23 | NUR ---
RN MS NOTES PT IN BED, AWAKE, ALERT, CALM AT THIS TIME, NO COMPLAINT OF PAIN, PT REFUSED VITAL SIGN CHECK, PT REFUSED AM MEDS, REFUSED TO RESTART HER IV, DR. MARTINS AWARE, CAME TO SEE PT, PLAN OF CARE DISCUSSED WITH PT, PT STILL REFUSES TO START IV, PER MD WILL BE SEEN BY PSYCH IF CONTINUES TO REFUSE, PT INFORMED. MD ALSO INFORMED OF PT'S EPISODE OF AGITATION AND INCIDENT OF SKIN TEAR IN THE MORNING.
--- NOTE | 2018-05-24 09:50 | NUR ---
RN MS NOTES PT IN BED, AWAKE, ALERT AND VERBALLY RESPONSIVE, PT EDUCATION PROVIDED REGARDING THE NEED FOR IV FLUIDS AND MEDICATION, PT STILL REFUSED IV INSERTION, VITAL SIGNS CHECKING, STARTS TO GET AGITATED, PT REFUSING TO EAT ALSO, MD AWARE, PSYCH CONSULT ORDERED.
[2018-05-24] MEDS ORDERED: IV NS 0.9% 1,000 ML IV PRN (10:30)
--- NOTE | 2018-05-24 12:00 | NUR ---
RN MS NOTES PT IN BED, AWAKE, ALERT, VERBALLY RESPONSIVE, DENIES PAIN, NOT IN DISTRESS, OFFERED TO HAVE IV REINSERTED, STILL REFUSING, AWAITING PSYCH CONSULT, SON ROCHELLE INFORMED, CAME TO VISIT HIS MOM.
[2018-05-24 12:58] VITALS: BP 110/52
[2018-05-24] MEDS ORDERED: AZITHROMYCIN 250 MG TABLET PO SCH (13:00)
[2018-05-24] MEDS ORDERED: risperiDONE-M 0.5 MG TAB.RAPDIS PO SCH (14:00)
--- NOTE | 2018-05-24 15:00 | NUR ---
RN MS NOTES PT IN BED, AWAKE, ALERT AND ORIENTED, NO COMPLAINT OF PAIN, RESPIRATIONS NORMAL, PT SEEN AND EXAMINED BY DR. PUCKETT, PLAN OF CARE DISCUSSED WITH PT AND SON MD ROCHELLE ALSO ORDERED CRISIS TEAM EVAL, FAMILY ABLE TO SPEAK WITH PATIENT AND CONVINCE HER TO TAKE HER MEDS AND TO HAVE HER IV STARTED, EXPLAINED PROCEDURE TO PT AND GAVE CONSENT, INSERTED A NEW IV AT LEFT HAND, TOLERATED PROCEDURE WELL, PT ALSO TOOK HER ORAL MEDICATIONS, CALM AT THIS TIME, WILL CONTINUE TO MONITOR.
[2018-05-24 16:30] VITALS: BP 118/53
[2018-05-24 16:39] VITALS: BP 118/53
[2018-05-24] MEDS ORDERED: LACTOBACILLUS RHAMNOSUS GG 1 EACH CAP.SPRINK PO SCH (17:00)
--- NOTE | 2018-05-24 19:10 | NUR ---
RN MS NOTES DISCUSSED BENEFITS OF STAYING IN THE HOSPITAL TO CONTINUE RECEIVING CARE AND MEDICATION AND RISKS OF GOING HOME AGAINST MEDICAL ADVICE TO PATIENT AND SON, PT STILL INSISTED THAT SHE WANTS TO LEAVE, INFORMED SON THAT THE DOCTOR WILL BE INFORMED, PLACED A CALL TO DR. MARTINS, AWAITING CALL BACK.
--- NOTE | 2018-05-24 19:15 | NUR ---
MS RN OPENING NOTES: RECEIVED PT AND WITH CAREGIVER AND AT BEDSIDE. PT IS A/OX3 AND IS NON COMPLIANT. PT WANTS TO GO AMA BUT DOES NOT WANT TO SIGN AMA FORMS. AWAITING FOR SON TO ARRIVE PT IS GOING TO GET PICKED UP BY HIM. PT HAS IV STILL INTACT. MEPILEX AND GAUZE NOTED ON L ARM. SITTER AT BEDSIDE. BED KEPT IN LOW, LOCKED POSITION, AND SIDE RAILS X 3UP. WILL CONTINUE TO MONITOR PT.
--- NOTE | 2018-05-24 19:15 | NUR ---
RN MS NOTES PT IN BED, DENIES PAIN, NOT IN DISTRESS, CAREGIVER AND AT BEDSIDE, PT STATED SHE WANTS TO GO HOME AGAINST MEDICAL ADVICE, SON ROCHELLE PRESENT AND AWARE OF THE SITUATION, DR. MARTINS INFORMED, DR. MARTINS SPOKE WITH PT'S SON, PER PT SHE DOES NOT WANT TO STAY AND WANTS TO GO HOME, PT DOES NOT WANT TO SIGN AMA FORM AT THIS TIME, [facility] WILL COME BACK TO PICK HER UP, EDUCATIONAL MATERIALS PROVIDED TO PT, AWAITING LOG ROLLER BY [facility], ENDORSED TO INCOMING NURSE FOR CONTINUITY OF CARE.
--- NOTE | 2018-05-24 20:56 | NUR ---
MS RN NOTES: ROCHELLE, SON, PICKED UP MOTHER IN HER OWN WHEELCHAIR. PT SIGNED AMA. SON AWARE. IV REMOVED. ALL BELONGINGS WITH PT. Addendum: 05/24/18 at 2255 by JESSICA BEAZ RN SON ALSO SIGNED AMA. HE IS AWARE. BELONGINGS LIST SIGNED WELL. ANOTHER RN, DAWSON Abdi COSIGNED WITH ME WELL. CHARGE NURSE GIDEON Patterson AWARE WELL. Addendum: 05/25/18 at 0203 [address] MIGUEL NOTIFIED THAT PT WENT AMA.
== END 2018-05-24 21:00 | disposition left against medical advice (07) | DRG 682 ==
LOC: ER 08:55 → TELE 12:35 → MED 05-24 09:19
PROVIDERS: ADMIT Family Medicine; ATTEND Family Medicine
DX: N17.0 Acute kidney failure with tubular necrosis (principal); J15.9 Unspecified bacterial pneumonia; I13.0 Hypertensive heart and chronic kidney disease with heart failure and stage 1 through stage 4 chronic kidney disease, or unspecified chronic kidney disease; F03.91 Unspecified dementia, unspecified severity, with behavioral disturbance; Z68.41 Body mass index [BMI] 40.0-44.9, adult; E78.5 Hyperlipidemia, unspecified; E66.9 Obesity, unspecified; I25.10 Atherosclerotic heart disease of native coronary artery without angina pectoris; N18.9 Chronic kidney disease, unspecified; L30.4 Erythema intertrigo; I50.9 Heart failure, unspecified; M48.00 Spinal stenosis, site unspecified; R73.9 Hyperglycemia, unspecified; G62.9 Polyneuropathy, unspecified; M19.90 Unspecified osteoarthritis, unspecified site; L30.8 Other specified dermatitis; F39 Unspecified mood [affective] disorder; W19.XXXA Unspecified fall, initial encounter; Y93.9 Activity, unspecified; Y92.009 Unspecified place in unspecified non-institutional (private) residence as the place of occurrence of the external cause
CPT/HCPCS: 36415; 70450-TC; 71045-TC; 80048-TC; 80061-TC; 83605-TC; 83735-TC; 84100-TC; 84484-TC; 85025-TC; 87040-TC; 87081-TC; A4606; G0378; J0456; J0696; J7030; J7060; Z7610